=== PATIENT | male | born 1950 | race Hispanic/Latino ===

== ENCOUNTER 2016-02-12 14:02 | Inpatient (IN) | payer MEDICARE ==
[2016-02-12 15:53] LABS: Hemoglobin 10.4 gm/dl (11.8-15.2); Mean Corpuscular HGB Conc 31 % (32-34); Mean Corpuscular Hemoglobin 28 pg (28-32); Mean Corpuscular Volume 90 fl (84-94); Platelet Count 340 K/mm3 (140-440); Red Blood Count 3.65 M/mm3 (3.65-5.03)
[2016-02-12 16:00] LABS: White Blood Count 21.4 K/mm3 (4.5-11.0)
[2016-02-12] MEDS ORDERED: NACL 0.9% 1000 ML 1,000 ML ONE (16:13)
[2016-02-12 16:25] LABS: BUN/Creatinine Ratio 14.11; Calcium 8.5 mg/dL (8.4-10.2); Chloride 97.7 mmol/L (98-107); Potassium 4.4 mmol/L (3.6-5.0)
[2016-02-12] MEDS ORDERED: NACL 0.9% 1000 ML IV ONE (16:40)
[2016-02-12] MEDS ORDERED: ZOSYN/NS 4.5GM/100ML 100 ML IV ONE ×2 (16:45→20:03)
[2016-02-12] MEDS ORDERED: VANCOMYCIN/NS 1 GM/250 ML 250 ML IV ONE (16:45)
--- NOTE | 2016-02-12 16:54 | Emergency Department Report ---
HPI - General Chief Complaint: Dyspnea/Respdistress Time Seen by Provider: 02/12/16 15:12 - HPI HPI: Chief complaint: Shortness of breath HPI: Patient with a history of end-stage COPD, CHF states he's been having difficulty breathing for the last 2 weeks. Patient was admitted to [facility] was there for 4 days and was discharged 3 days ago. Patient states he's been getting worse ever since. Patient denies nausea, vomiting, diarrhea or fever. Patient has a dry cough. Patient states he was told he had heart failure on this last admission but never saw a masonry instructor and states it is a right heart problem. Patient has no pedal edema. Patient is on 3-1/2 L of O2 via nasal cannula at home. Patient states he is taking prednisone since his discharge from the hospital but no antibiotics. Mode of arrival: [EMS] Source: [Patient] Began: Several weeks Duration: Continuous Context: Patient quit smoking 9 years ago. Patient states that he never got better in the hospital after admission here request that he go to LTAC. Quality: Generalized body aches Severity: 6 out of 10 Improved with: Nothing Worsened with: Exertion increases his shortness of breath Associated signs and symptoms: Patient states he's had decreased appetite ED Past Medical Hx - Past Medical History Hx Hypertension: Yes Hx Congestive Heart Failure: Yes Hx Diabetes: Yes Hx COPD: Yes - Surgical History Hx Cholecystectomy: Yes Additional Surgical History: tonsillectomy - Social History Smoking Status: Former Smoker Substance Use Type: None - Medications Home Medications: Home Medications Medication Instructions Recorded Confirmed Last Taken Type ALBUTEROL Inhaler [Proair] 2 puff IH QID PRN 02/12/16 02/12/16 Unknown History ALPRAZolam [Xanax TAB] 0.5 mg PO BID PRN 02/12/16 02/12/16 Unknown History Clopidogrel Bisulfate [Plavix] 75 mg PO DAILY 02/12/16 02/12/16 Unknown History Finasteride [Proscar] 5 mg PO QDAY 02/12/16 02/12/16 Unknown History Insulin Aspart [NovoLOG Flexpen] 0 units SQ AC 02/12/16 02/12/16 Unknown History Insulin Detemir [Levemir Flextouch] 20 unit SQ QHS 02/12/16 02/12/16 Unknown History Ipratropium [Atrovent] 0.5 mg IH Q8HRT 02/12/16 02/12/16 Unknown History Lisinopril [Zestril] 5 mg PO QDAY 02/12/16 02/12/16 Unknown History Tamsulosin [Flomax] 0.4 mg PO QDAY 02/12/16 02/12/16 Unknown History Tiotropium [Spiriva] 18 mcg IH QDAY 02/12/16 02/12/16 Unknown History amLODIPine [Norvasc] 10 mg PO DAILY 02/12/16 02/12/16 Unknown History predniSONE [Deltasone] 40 mg PO QDAY 02/12/16 02/12/16 Unknown History ED Review of Systems ROS: Stated complaint: MILAGRO Other details as noted in HPI ROS Constitutional: No fever, some lightheadedness. ENT: No uri symptoms Cardiovascular: No chest pain Respiratory: See HPI GI: No nausea vomiting or diarrhea : No dysuria frequency or urgency, Skin: No rash Neuro: No focal weakness or numbness Psych: No depression Travis/lymph: No edema Physical Exam - Physical Exam Vital Signs: Vital Signs 02/12/16 14:55 Temperature 97.9 F Pulse Rate 114 H Respiratory 24 Rate Blood Pressure 82/44 O2 Sat by Pulse 4 L Oximetry Physical Exam: GENERAL: The patient is well-developed well-nourished . Vital signs noted. HEENT: Normocephalic. Atraumatic. Extraocular motions are intact. Patient has moist mucous membranes. NECK: Supple. No meningitic signs are noted. There is no adenopathy noted. CHEST/LUNGS: Diminished with expiratory wheezes. There is no respiratory distress noted. HEART/CARDIOVASCULAR: Regular. There is no tachycardia. There is no gallop rub or murmur. ABDOMEN: Abdomen is soft, nontender. Patient has normal bowel sounds. There is no abdominal distention. SKIN: There is no rash. There is no edema. There is no diaphoresis. NEURO: The patient is awake, alert, and oriented. The patient is cooperative. The patient has no focal neurologic deficits. The patient has normal speech. MUSCULOSKELETAL: There is no tenderness or deformity. There is no limitation range of motion. There is no evidence of acute injury. ED Course Vital Signs 02/12/16 14:55 Temperature 97.9 F Pulse Rate 114 H Respiratory 24 Rate Blood Pressure 82/44 O2 Sat by Pulse 4 L Oximetry - Reevaluation(s) Reevaluation #1: 02/12/16 17:02 Patient was cultured and given IV antibiotics and IV fluids. Patient will be admitted to the hospitalist. Reevaluation #3: 02/12/16 Patient stopped taking his breathing treatment because it made him anxious. Patient states he would not consider BiPAP or intubation or central line. ED Medical Decision Making - Lab Data Result diagrams: 02/12/16 15:33 02/12/16 15:32 Laboratory Tests 02/12/16 15:32 Troponin T 0.014 - EKG Data -: EKG Interpreted by Me EKG shows normal: sinus rhythm Rate: tachycardia (102) - EKG Data When compared to previous EKG there are: previous EKG unavailable Interpretation: normal EKG (except for tachycardia) Critical care attestation.: If time is entered above; I have spent that time in minutes in the direct care of this critically ill patient, excluding procedure time. ED Disposition Clinical Impression: COPD exacerbation, Dehydration, Renal insufficiency Leukocytosis Qualifiers: Leukocytosis type: unspecified Qualified Code(s): D72.829 - Elevated white blood cell count, unspecified Disposition: OP ADMITTED IP TO THIS HOSP Is pt being admited?: Yes Does the pt Need Aspirin: Yes Condition: Stable Instructions: Chronic Obstructive Pulmonary Disease (ED)
[2016-02-12] MEDS ORDERED: PROVENTIL IH ONE (16:57)
[2016-02-12] MEDS ORDERED: ATROVENT IH ONE (16:57)
[2016-02-12 19:41] LABS: Basophils % (Manual) 0 % (0.0-1.8); Blastocytes % (Manual) 0 %; Eosinophils % (Manual) 0 % (0.0-4.3)
[2016-02-12 19:42] LABS: Anisocytosis 1+; Elliptocytes Few; Ovalocytes 1+
[2016-02-12 19:43] LABS: Diff Status Complete; Platelet Estimate Consistent w Auto
[2016-02-12] MEDS ORDERED: ASPIRIN PO ONE (19:50)
[2016-02-12] MEDS ORDERED: PROAIR IH PRN (21:09)
--- NOTE | 2016-02-12 21:09 | Event Note ---
Date: 02/12/16 Ac resp failure Copd exacerbation ESLD Patient doesn't want Intubation or Bipap--signed DNI/ No BIPAP
[2016-02-12] MEDS ORDERED: MILK OF MAGNESIA PO PRN (21:14)
[2016-02-12] MEDS ORDERED: DULCOLAX PR PRN (21:14)
[2016-02-12] MEDS ORDERED: ZOFRAN IV PRN (21:14)
[2016-02-12] MEDS ORDERED: TYLENOL PO PRN (21:14)
[2016-02-12] MEDS ORDERED: DILAUDID IV PRN (21:14)
[2016-02-12] MEDS ORDERED: NOVOLOG SUB-Q ONE ×2 (21:29→22:08)
[2016-02-12] MEDS ORDERED: PROVENTIL IH PRN ×2 (21:35→21:59)
[2016-02-12] MEDS ORDERED: DUONEB 0.5 MG-3 MG/3 ML SOLN IH PRN (21:51)
[2016-02-12] MEDS ORDERED: INSULIN DETEMIR 20 UNIT SQ SCH (22:00)
[2016-02-12] MEDS ORDERED: D5NS 1,000 ML IV SCH (22:00)
[2016-02-12] MEDS ORDERED: LEVAQUIN 750MG/150ML 150 ML IV SCH ×2 (22:00)
[2016-02-12 22:06] LABS: ISTAT Base Excess 7; ISTAT HCO3 31.1; ISTAT PH 7.457 (7.35-7.45); ISTAT PO2 104 (80-105); ISTAT SO2 98; ISTAT TCO2 32
--- NOTE | 2016-02-12 22:47 | History and Physical Report ---
CHIEF COMPLAINT: Severe shortness of breath. HISTORY OF PRESENT ILLNESS: A 66-year-old male with end-stage COPD and CHF who comes in for severe difficulty breathing for the last 2 weeks. The patient was admitted to [facility] recently for 4 days and was discharged 3 days ago. The patient has been getting worse since then. Denies nausea or vomiting. The patient does not want intubation. Does not want BiPAP. No fever, no chills. The patient has right heart ventricular failure. The patient is on 3.5 liters oxygen at home. Also, is taking 40 mg of prednisone. Worsening shortness of breath. Quit smoking 9 years ago. He does not want intubation, does not want BiPAP, but he wants to be stabilized and then sent to LT for rehab. PAST MEDICAL HISTORY: End-stage lung disease, severe COPD, congestive heart failure, hypertension, BPH, and insulin-dependent diabetes. PAST SURGICAL HISTORY: Tonsillectomy. SOCIAL HISTORY: Smoker till 9 years ago. CURRENT MEDICATIONS: ProAir 2 puffs q.i.d., Xanax 0.5 mg b.i.d., Plavix 75 mg p.o. daily, Proscar 5 mg p.o. daily, NovoLog 10 units a.c. and Levemir 20 units subcutaneous at bedtime, Atrovent 2 puffs t.i.d., Zestril 5 mg p.o. daily, Flomax 0.4 mg p.o. daily, Spiriva 18 mcg p.o. daily, amlodipine 10 mg p.o. daily, and prednisone 40 mg p.o. daily. REVIEW OF SYSTEMS: Significant for increasing shortness of breath and worsening shortness of breath. Cough productive of mucoid sputum and shortness of breath on very minimal exertion and at rest. No fever. No chills. A 14-point review of systems otherwise negative. No chest pain. No palpitations. PHYSICAL EXAMINATION: GENERAL: Elderly male in [id number] respiratory distress. VITAL SIGNS: Temperature 97.9, pulse is 114, respiratory rate is 24, blood pressure 82/44, sats are 90%. HEENT: Unremarkable. Pupils equal and reactive. NECK: Supple, no lymphadenopathy, no thyromegaly. LUNGS: Decreased air entry and bilateral rhonchi present. Both expiratory and inspiratory rhonchi present. CARDIOVASCULAR: S1, S2 heard. No gallop, no murmur, no rub. Apical impulse in left fifth intercostal space and midclavicular line. ABDOMEN: Soft and benign. No hepatosplenomegaly. No guarding, no rigidity. Hernial orifices are normal. EXTREMITIES: Slight pedal edema present. LABORATORY DATA: White count is 21,000, H and H is 10.4 and 33.0, platelet count is 340,000. Sodium is 143, potassium is 4.4, chloride is 97.7, BUN and creatinine is 24 and 1.7, glucose is 181. EKG shows sinus tachycardia, heart rate of [address]-T wave changes. Chest x-ray shows severe COPD. No infiltrates. Blood gas was done, but was pending. ASSESSMENT AND PLAN: 1. Acute respiratory failure secondary to chronic obstructive pulmonary disease. The patient does not want intubation, does not BiPAP. We will optimize this treatment with DuoNeb q. 6 hours round the clock ____ and also Pulmicort and IV Solu-Medrol 125 q. 8 hours and IV Levaquin 750 mg q. 24 hours. 2. Insulin-dependent diabetes. Continue long-acting insulin 20 units of Levemir at night time and also ____ a.c. and h.s. 3. Benign prostatic hypertrophy. Continue finasteride 5 mg p.o. daily. 4. Hypertension. Continue lisinopril 5 mg daily. 5. Steroid-dependent chronic obstructive pulmonary disease. We will hold the prednisone 40 mg for the time being and put him on Solu-Medrol 125 q. 8 hours and resume at the time of discharge to LTAC. 6. Anxiety disorder. Continue alprazolam. 7. Coronary artery disease. Continue Plavix. 8. Deep venous thrombosis prophylaxis, Lovenox 40 mg subcutaneous daily. CRITICAL CARE STATEMENT: High probability of a clinically significant sudden or life-threatening deterioration of the hematologic and cardiorespiratory system required my full and direct attention, intervention and personal management. The aggregate critical care time was 37 minutes. The time in addition to time spent performing reported procedures, but includes the followin. Data review and interpretation. 2. The patient's assessment and monitoring of vital signs. 3. Documentation 4. Medication orders and management. JOB# [id number] MERI/WALI
[2016-02-12] MEDS: NACL 0.9% 1000 ML 1,000 ML IV SCH (23:23)
[2016-02-12] MEDS: PEPCID IV SCH (23:24)
[2016-02-12] MEDS: ZESTRIL PO SCH (23:24)
[2016-02-12] MEDS: NORVASC PO SCH (23:25)
[2016-02-12] MEDS: LEVEMIR SUB-Q SCH (23:42)
[2016-02-12] MEDS: PLAVIX PO SCH (23:47)
[2016-02-13] MEDS ORDERED: ATROVENT IH SCH
[2016-02-13 04:45] LABS: Hematocrit 31.5 % (35.5-45.6); Hemoglobin 9.7 gm/dl (11.8-15.2); Mean Corpuscular HGB Conc 31 % (32-34); Mean Corpuscular Hemoglobin 28 pg (28-32); Mean Corpuscular Volume 91 fl (84-94); Platelet Count 312 K/mm3 (140-440); Red Blood Count 3.46 M/mm3 (3.65-5.03); Red Cell Distribution Width 16.6 % (13.2-15.2); White Blood Count 14.8 K/mm3 (4.5-11.0)
[2016-02-13 05:02] LABS: Alanine Aminotransferase 10 units/L (7-56); Albumin 2.9 g/dL (3.9-5); Albumin/Globulin Ratio 1.2 %; Alkaline Phosphatase 50 units/L (35-129); Bilirubin,Total 0.5 mg/dL (0.1-1.2); Blood Urea Nitrogen 23 mg/dL (9-20); Calcium 8.1 mg/dL (8.4-10.2); Carbon Dioxide 32 mmol/L (22-30); Chloride 98.6 mmol/L (98-107); Glucose 160 mg/dL (75-100); Potassium 4.4 mmol/L (3.6-5.0); Sodium 138 mmol/L (137-145); Total Protein 5.3 g/dL (6.3-8.2)
[2016-02-13 05:19] LABS: Anion Gap 12 mmol/L
[2016-02-13 05:36] LABS: Anisocytosis 1+; Basophils % (Manual) 0 % (0.0-1.8); Blastocytes % (Manual) 0 %; Eosinophils % (Manual) 0 % (0.0-4.3); Platelet Estimate Consistent w Auto
[2016-02-13 05:37] LABS: Diff Status Complete
[2016-02-13] MEDS ORDERED: SPIRIVA IH SCH (10:00)
--- NOTE | 2016-02-13 10:06 | Consultation ---
History of Present Illness Consult date: 02/13/16 Requesting physician: PEARL BALDWIN Reason for consult: COPD History of present illness: 66 y/o male with known COPD and known chronic respiratory failure admitted with overall malaise and requesting admission to LTACH. Per patient he was released from [facility] to [facility] and feels that he needs rehab either here on the 3rd floor or 6th floor. He states that he is on 3.5 liters NC at home but here he is on 2.5 with a sat of 98%. ABG was stable. Had some mild renal insuff on yesterday but this has resolved. Patient would now like breathing treatments as per documentation he refused last night. Remainder is negative. Past History Past Medical History: COPD, diabetes, hypertension, other (chronic respiratory failure, BPH,) Social history: Medications and Allergies Allergies Allergy/AdvReac Type Severity Reaction Status Date / Time No Known Allergies Allergy Unverified 02/12/16 14:59 Home Medications Medication Instructions Recorded Confirmed Last Taken Type ALBUTEROL Inhaler [Proair] 2 puff IH QID PRN 02/12/16 02/12/16 Unknown History ALPRAZolam [Xanax TAB] 0.5 mg PO BID PRN 02/12/16 02/12/16 Unknown History Clopidogrel Bisulfate [Plavix] 75 mg PO DAILY 02/12/16 02/12/16 Unknown History Finasteride [Proscar] 5 mg PO QDAY 02/12/16 02/12/16 Unknown History Insulin Aspart [NovoLOG Flexpen] 0 units SQ AC 02/12/16 02/12/16 Unknown History Insulin Detemir [Levemir Flextouch] 20 unit SQ QHS 02/12/16 02/12/16 Unknown History Ipratropium [Atrovent] 0.5 mg IH Q8HRT 02/12/16 02/12/16 Unknown History Lisinopril [Zestril] 5 mg PO QDAY 02/12/16 02/12/16 Unknown History Tamsulosin [Flomax] 0.4 mg PO QDAY 02/12/16 02/12/16 Unknown History Tiotropium [Spiriva] 18 mcg IH QDAY 02/12/16 02/12/16 Unknown History amLODIPine [Norvasc] 10 mg PO DAILY 02/12/16 02/12/16 Unknown History predniSONE [Deltasone] 40 mg PO QDAY 02/12/16 02/12/16 Unknown History Active Meds: Active Medications Acetaminophen (Tylenol) 650 mg PO Q4H PRN PRN Reason: Pain MILD(1-3)/Fever >100.5/RAMOS Albuterol (Proventil) 2.5 mg IH Q3HRT PRN PRN Reason: Wheezing/ SOB Albuterol/Ipratropium (Duoneb 0.5 Mg-3 Mg/3 Ml Soln) 1 ampul IH Q6HRT [facility] Alprazolam (Xanax) 0.5 mg PO BID PRN PRN Reason: Anxiety Amlodipine Besylate (Norvasc) 10 mg PO DAILY [facility] Last Admin: 02/12/16 23:25 Dose: Not Given Bisacodyl (Dulcolax) 10 mg FL QDAY PRN PRN Reason: Constipation unrelieved by MOM Clopidogrel Bisulfate (Plavix) 75 mg PO DAILY [facility] Last Admin: 02/12/16 23:47 Dose: 75 mg Enoxaparin Sodium (Lovenox) 40 mg SUB-Q QDAY [facility] Famotidine (Pepcid) 20 mg IV BID [facility] Last Admin: 02/12/16 23:24 Dose: 20 mg Finasteride (Proscar) 5 mg PO QDAY [facility] Hydromorphone HCl (Dilaudid) 0.5 mg IV Q3H PRN PRN Reason: Pain , Severe (7-10) Levofloxacin/Dextrose (Levaquin 750mg/150ml) 150 mls @ 100 mls/hr IV Q48H [facility] PRN Reason: Protocol Last Admin: 02/12/16 23:22 Dose: 100 mls/hr Sodium Chloride (Nacl 0.9% 1000 Ml) 1,000 mls @ 100 mls/hr IV DIRECT [facility] Last Admin: 02/12/16 23:23 Dose: 100 mls/hr Insulin Detemir (Levemir) 20 units SUB-Q QHS [facility] Last Admin: 02/12/16 23:42 Dose: 20 units Insulin Human Regular (Novolin R) 0 units SUB-Q ACHS [facility] PRN Reason: Protocol Lisinopril (Zestril) 5 mg PO QDAY [facility] Last Admin: 02/12/16 23:24 Dose: Not Given Magnesium Hydroxide (Milk Of Magnesia) 30 ml PO Q4H PRN PRN Reason: Constipation Methylprednisolone Sodium Succinate (Solu-Medrol) 125 mg IV Q8HR [facility] Last Admin: 02/13/16 06:58 Dose: 125 mg Ondansetron HCl (Zofran) 4 mg IV Q8H PRN PRN Reason: N/V unrelieved by Reglan Oxycodone/Acetaminophen (Percocet 5/325) 1 tab PO Q6H PRN PRN Reason: Pain, Moderate (4-6) Tamsulosin HCl (Flomax) 0.4 mg PO QDAY [facility] Review of Systems All systems: negative Physical Examination Vital signs: Vital Signs Pulse Ox 97 02/12/16 12:54 General appearance: no acute distress, alert Eyes: non-icteric ENT: oropharynx moist, other (poor dentition) Ascultation: Bilateral: diminished breath sounds (but clear) Percussion: Bilateral: not dull Tactile fremitus: Bilateral: normal Cardiovascular: regular rate and rhythm Gastrointestinal: normoactive bowel sounds, soft, non-tender Extremities: no cyanosis, no edema Musculoskeletal: no deformities normal mental status, non-focal exam other (angry) Results - Laboratory Findings CBC and BMP: 02/13/16 04:15 02/13/16 04:15 ABG POC ABG pH 7.457 (7.35-7.45) H 02/12/16 22:01 POC ABG pCO2 44.0 (35-45) 02/12/16 22:01 POC ABG pO2 104 (80-105) 02/12/16 22:01 POC ABG HCO3 31.1 02/12/16 22:01 POC ABG Total CO2 32 02/12/16 22:01 POC ABG O2 Sat 98 02/12/16 22:01 Abnormal lab findings: Abnormal Labs 02/12/16 02/12/16 02/12/16 22:01 22:04 23:39 WBC RBC Hgb Hct MCHC RDW Seg Neuts % (Manual) Lymphocytes % (Manual) Seg Neutrophils # Man Lymphocytes # (Manual) POC ABG pH 7.457 H Carbon Dioxide BUN Glucose POC Glucose 313 H 296 H Calcium Total Protein Albumin 02/13/16 02/13/16 02/13/16 04:15 04:15 08:05 WBC 14.8 H RBC 3.46 L Hgb 9.7 L Hct 31.5 L MCHC 31 L RDW 16.6 H Seg Neuts % (Manual) 91.0 H Lymphocytes % (Manual) 2.0 L Seg Neutrophils # Man 13.5 H Lymphocytes # (Manual) 0.3 L POC ABG pH Carbon Dioxide 32 H BUN 23 H Glucose 160 H POC Glucose 154 H Calcium 8.1 L Total Protein 5.3 L Albumin 2.9 L - Diagnostic Findings Chest x-ray: image reviewed (chronic bibasilar changes, vs pulmonary edema) Assessment and Plan 66 y/o male with chronic respiratory failure, COPD, hypertension and anxiety, admitted with failure to thrive, requesting placement. 1. Will change steroids to 40mg IV daily 2. Would stop abx therapy 3. Agree with PT/OT evaluation 4. BP control 5. Unsure exactly why patient was admitted to the ICU, will transfer out to floor 6. Case management consult for placement at request of patient. Explained to him that he would need to qualify for certain placement areas. He voiced understanding.
--- NOTE | 2016-02-13 10:06 | XRay Report ---
AP CHEST: HISTORY: Shortness of breath Advanced emphysematous changes. No consolidation, pleural effusion or pneumothorax. Normal heart size and pulmonary vascularity. IMPRESSION: COPD.
[2016-02-13] MEDS: LOVENOX SUB-Q SCH (10:37)
[2016-02-13] MEDS: PEPCID IV SCH (10:37)
[2016-02-13] MEDS: FLOMAX PO SCH (10:37)
[2016-02-13] MEDS: NORVASC PO SCH (10:37)
[2016-02-13] MEDS: NACL 0.9% 1000 ML 1,000 ML IV SCH ×2 (10:39→18:45)
[2016-02-13] MEDS: PLAVIX PO SCH (10:44)
[2016-02-13] MEDS: PROSCAR PO SCH (10:44)
[2016-02-13] MEDS: ZESTRIL PO SCH (10:49)
--- NOTE | 2016-02-13 12:36 | Progress Note ---
Assessment and Plan Assessment and plan: 1. COPd exacerbation with chronic respiratory failure- will cont nebulization treatments; transfer to medical floor; cont steroid; change levaquin to 500mg daily; add brovana and pulmicort; 2. CHF - appears compensated; EF unknown; cont current meds; eCHO to eval EF 3. 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 Benign HTN- uncontrolled; cont current meds and adjust as needed 5. BPH- cont meds 6. Debility- PT eval 7. DVT prophylaxis- lovenox Transfer to medical floor History Interval history: F/u copd exacerbation; debility; chf patient seen at the bedside; reports no change in his SOB but is laying comfortable in bed on NC oxygen; DNI but wants cardiac compressions Hospitalist Physical - Constitutional Vitals: Temp Pulse Resp BP Pulse Ox 97.7 F 86 15 155/82 98 02/13/16 08:00 02/13/16 10:49 02/13/16 09:00 02/13/16 10:49 02/13/16 10:00 General appearance: Present: no acute distress (on NC oxygen), well-nourished - EENT Eyes: Present: PERRL, EOM intact. Absent: scleral icterus, conjunctival injection ENT: hearing intact, clear oral mucosa, no oropharyngeal erythema, no poor dentition - Neck Neck: Present: supple, normal ROM. Absent: enlarged thyroid, masses or JVD - Respiratory Respiratory effort: normal (on NC oxygen) Respiratory: bilateral: diminished, negative: rales, rhonchi, wheezing - Cardiovascular Rhythm: regular Heart Sounds: Present: S1 & S2. Absent: gallop - Extremities Extremities: no ischemia, pulses intact, pulses symmetrical, No edema Peripheral Pulses: within normal limits - Abdominal General gastrointestinal: soft, non-tender, non-distended - Integumentary Integumentary: Present: clear - Psychiatric Psychiatric: intact judgment & insight, agitated - Neurologic Neurologic: CNII-XII intact, moves all extremities Results - Labs CBC & Chem 7: 02/13/16 04:15 02/13/16 04:15 Labs: Laboratory Last Values WBC 14.8 K/mm3 (4.5-11.0) H 02/13/16 04:15 RBC 3.46 M/mm3 (3.65-5.03) L 02/13/16 04:15 Hgb 9.7 gm/dl (11.8-15.2) L 02/13/16 04:15 Hct 31.5 % (35.5-45.6) L 02/13/16 04:15 MCV 91 fl (84-94) 02/13/16 04:15 MCH 28 pg (28-32) 02/13/16 04:15 MCHC 31 % (32-34) L 02/13/16 04:15 RDW 16.6 % (13.2-15.2) H 02/13/16 04:15 Plt Count 312 K/mm3 (140-440) 02/13/16 04:15 Add Manual Diff Complete 02/13/16 04:15 Total Counted 100 02/13/16 04:15 Seg Neutrophils % Key Holder 02/13/16 04:15 Seg Neuts % (Manual) 91.0 % (40.0-70.0) H 02/13/16 04:15 Band Neutrophils % 6.0 % 02/13/16 04:15 Lymphocytes % (Manual) 2.0 % (13.4-35.0) L 02/13/16 04:15 Reactive Lymphs % (Man) 0 % 02/13/16 04:15 Monocytes % (Manual) 1.0 % (0.0-7.3) 02/13/16 04:15 Eosinophils % (Manual) 0 % (0.0-4.3) 02/13/16 04:15 Basophils % (Manual) 0 % (0.0-1.8) 02/13/16 04:15 Metamyelocytes % 0 % 02/13/16 04:15 Myelocytes % 0 % 02/13/16 04:15 Promyelocytes % 0 % 02/13/16 04:15 Blast Cells % 0 % 02/13/16 04:15 Nucleated RBC % Not Reportable 02/13/16 04:15 Seg Neutrophils # Man 13.5 K/mm3 (1.8-7.7) H 02/13/16 04:15 Band Neutrophils # 0.9 K/mm3 02/13/16 04:15 Lymphocytes # (Manual) 0.3 K/mm3 (1.2-5.4) L 02/13/16 04:15 Abs React Lymphs (Man) 0.0 K/mm3 02/13/16 04:15 Monocytes # (Manual) 0.1 K/mm3 (0.0-0.8) 02/13/16 04:15 Eosinophils # (Manual) 0.0 K/mm3 (0.0-0.4) 02/13/16 04:15 Basophils # (Manual) 0.0 K/mm3 (0.0-0.1) 02/13/16 04:15 Metamyelocytes # 0.0 K/mm3 02/13/16 04:15 Myelocytes # 0.0 K/mm3 02/13/16 04:15 Promyelocytes # 0.0 K/mm3 02/13/16 04:15 Blast Cells # 0.0 K/mm3 02/13/16 04:15 WBC Morphology Not Reportable 02/13/16 04:15 Hypersegmented Neuts Not Reportable 02/13/16 04:15 Hyposegmented Neuts Not Reportable 02/13/16 04:15 Hypogranular Neuts Not Reportable 02/13/16 04:15 Smudge Cells Not Reportable 02/13/16 04:15 Toxic Granulation Not Reportable 02/13/16 04:15 Toxic Vacuolation Not Reportable 02/13/16 04:15 Dohle Bodies Not Reportable 02/13/16 04:15 Pelger-Huet Anomaly Not Reportable 02/13/16 04:15 Louise Rods Not Reportable 02/13/16 04:15 Platelet Estimate Consistent w auto 02/13/16 04:15 Clumped Platelets Not Reportable 02/13/16 04:15 Plt Clumps, EDTA Not Reportable 02/13/16 04:15 Large Platelets Not Reportable 02/13/16 04:15 Giant Platelets Not Reportable 02/13/16 04:15 Platelet Satelliting Not Reportable 02/13/16 04:15 Plt Morphology Comment Not Reportable 02/13/16 04:15 RBC Morphology Not Reportable 02/13/16 04:15 Dimorphic RBCs Not Reportable 02/13/16 04:15 Polychromasia Not Reportable 02/13/16 04:15 Hypochromasia Not Reportable 02/13/16 04:15 Poikilocytosis Not Reportable 02/13/16 04:15 Anisocytosis 1+ 02/13/16 04:15 Microcytosis Not Reportable 02/13/16 04:15 Macrocytosis Not Reportable 02/13/16 04:15 Spherocytes Not Reportable 02/13/16 04:15 Pappenheimer Bodies Not Reportable 02/13/16 04:15 Sickle Cells Not Reportable 02/13/16 04:15 Target Cells Not Reportable 02/13/16 04:15 Tear Drop Cells Not Reportable 02/13/16 04:15 Ovalocytes Not Reportable 02/13/16 04:15 Helmet Cells Not Reportable 02/13/16 04:15 Gonzalez-Zeigler Bodies Not Reportable 02/13/16 04:15 [place] Rings Not Reportable 02/13/16 04:15 Rell Cells Not Reportable 02/13/16 04:15 Bite Cells Not Reportable 02/13/16 04:15 Crenated Cell Not Reportable 02/13/16 04:15 Elliptocytes Not Reportable 02/13/16 04:15 Acanthocytes (Spur) Not Reportable 02/13/16 04:15 Rouleaux Not Reportable 02/13/16 04:15 Hemoglobin C Crystals Not Reportable 02/13/16 04:15 Schistocytes Not Reportable 02/13/16 04:15 Malaria parasites Not Reportable 02/13/16 04:15 Jayesh Bodies Not Reportable 02/13/16 04:15 Hem Pathologist Commnt No 02/13/16 04:15 POC ABG pH 7.457 (7.35-7.45) H 02/12/16 22:01 POC ABG pCO2 44.0 (35-45) 02/12/16 22:01 POC ABG pO2 104 (80-105) 02/12/16 22:01 POC ABG HCO3 31.1 02/12/16 22:01 POC ABG Total CO2 32 02/12/16 22:01 POC ABG O2 Sat 98 02/12/16 22:01 POC ABG Base Excess 7 02/12/16 22:01 FiO2 4 % 02/12/16 22:01 Sodium 138 mmol/L (137-145) 02/13/16 04:15 Potassium 4.4 mmol/L (3.6-5.0) 02/13/16 04:15 Chloride 98.6 mmol/L (98-107) 02/13/16 04:15 Carbon Dioxide 32 mmol/L (22-30) H 02/13/16 04:15 Anion Gap 12 mmol/L 02/13/16 04:15 BUN 23 mg/dL (9-20) H 02/13/16 04:15 Creatinine 1.0 mg/dL (0.8-1.5) 02/13/16 04:15 Estimated GFR > 60 ml/min 02/13/16 04:15 BUN/Creatinine Ratio 23.00 % 02/13/16 04:15 Glucose 160 mg/dL (75-100) H 02/13/16 04:15 POC Glucose 167 (70-105) H 02/13/16 11:59 Hemoglobin A1c 6.9 % (4-6) H 02/12/16 15:33 Calcium 8.1 mg/dL (8.4-10.2) L 02/13/16 04:15 Total Bilirubin 0.5 mg/dL (0.1-1.2) 02/13/16 04:15 AST 8 units/L (5-40) 02/13/16 04:15 ALT 10 units/L (7-56) 02/13/16 04:15 Alkaline Phosphatase 50 units/L (35-129) 02/13/16 04:15 Troponin T 0.014 ng/mL (0.00-0.029) 02/12/16 15:32 Total Protein 5.3 g/dL (6.3-8.2) L 02/13/16 04:15 Albumin 2.9 g/dL (3.9-5) L 02/13/16 04:15 Albumin/Globulin Ratio 1.2 % 02/13/16 04:15 - Imaging and Cardiology Chest x-ray: report reviewed (copd)
[2016-02-13] MEDS: DUONEB 0.5 MG-3 MG/3 ML SOLN IH SCH ×2 (14:10→20:02)
[2016-02-14] MEDS: LEVEMIR SUB-Q SCH (00:16)
[2016-02-14] MEDS: PEPCID IV SCH ×2 (00:18→09:47)
[2016-02-14] MEDS: XANAX PO PRN (00:18)
[2016-02-14 05:05] LABS: Hematocrit 29.7 % (35.5-45.6); Hemoglobin 9.3 gm/dl (11.8-15.2); Mean Corpuscular HGB Conc 31 % (32-34); Mean Corpuscular Hemoglobin 28 pg (28-32); Mean Corpuscular Volume 91 fl (84-94); Platelet Count 317 K/mm3 (140-440); Red Blood Count 3.27 M/mm3 (3.65-5.03); Red Cell Distribution Width 16.6 % (13.2-15.2); White Blood Count 16.6 K/mm3 (4.5-11.0)
[2016-02-14 05:29] LABS: Anion Gap 13 mmol/L; BUN/Creatinine Ratio 22.85; Blood Urea Nitrogen 16 mg/dL (9-20); Calcium 8.1 mg/dL (8.4-10.2); Carbon Dioxide 30 mmol/L (22-30); Chloride 105.2 mmol/L (98-107); Glucose 103 mg/dL (75-100); Potassium 4.5 mmol/L (3.6-5.0); Sodium 144 mmol/L (137-145)
[2016-02-14 06:12] LABS: Anisocytosis 1+; Basophils % (Manual) 0 % (0.0-1.8); Blastocytes % (Manual) 0 %; Diff Status Complete; Eosinophils % (Manual) 0 % (0.0-4.3); Platelet Estimate Consistent w Auto
[2016-02-14] MEDS: DUONEB 0.5 MG-3 MG/3 ML SOLN IH SCH ×4 (07:25→22:11)
[2016-02-14] MEDS: PLAVIX PO SCH (09:47)
[2016-02-14] MEDS: ZESTRIL PO SCH (09:47)
[2016-02-14] MEDS: FLOMAX PO SCH (09:48)
[2016-02-14] MEDS: PROSCAR PO SCH (09:48)
[2016-02-14] MEDS: LOVENOX SUB-Q SCH (09:49)
[2016-02-14] MEDS: NORVASC PO SCH (09:50)
--- NOTE | 2016-02-14 11:36 | Progress Note ---
Assessment and Plan Imp: 1. Centrilobular emphysema, end-stage 2. COPD exac. 3. A/C respiratory failure, hypoxia Rec: 1. Solumedrol 2. Pulmicort/Brovana 3. Duonebs 4. Add low-dose Theophylline 5. Ambulation/placement 6. Await transfer out of ICU Plan of care reviewed w/ patient, he understands/agrees Subjective Date of service: 02/14/16 Principal diagnosis: COPD Interval history: No events. On home O2 dose. SOB better. + Wheezing. + Cough. Active Medications Acetaminophen (Tylenol) 650 mg PO Q4H PRN PRN Reason: Pain MILD(1-3)/Fever >100.5/RAMOS Albuterol (Proventil) 2.5 mg IH Q3HRT PRN PRN Reason: Wheezing/ SOB Albuterol/Ipratropium (Duoneb 0.5 Mg-3 Mg/3 Ml Soln) 1 ampul IH Q6HRT [facility] Last Admin: 02/14/16 19:36 Dose: 1 ampul Alprazolam (Xanax) 0.5 mg PO BID PRN PRN Reason: Anxiety Last Admin: 02/14/16 00:18 Dose: 0.5 mg Amlodipine Besylate (Norvasc) 10 mg PO DAILY [facility] Last Admin: 02/14/16 09:50 Dose: 10 mg Arformoterol Tartrate (Brovana Nebu) 15 mcg IH Q12HRT [facility] Bisacodyl (Dulcolax) 10 mg [place] QDAY PRN PRN Reason: Constipation unrelieved by MOM Budesonide (Pulmicort) 0.5 mg IH Q12HRT [facility] Clopidogrel Bisulfate (Plavix) 75 mg PO DAILY [facility] Last Admin: 02/14/16 09:47 Dose: 75 mg Enoxaparin Sodium (Lovenox) 40 mg SUB-Q QDAY [facility] Last Admin: 02/14/16 09:49 Dose: 40 mg Famotidine (Pepcid) 20 mg PO BID [facility] Finasteride (Proscar) 5 mg PO QDAY [facility] Last Admin: 02/14/16 09:48 Dose: 5 mg Hydromorphone HCl (Dilaudid) 0.5 mg IV Q3H PRN PRN Reason: Pain , Severe (7-10) Insulin Detemir (Levemir) 20 units SUB-Q QHS [facility] Last Admin: 02/14/16 00:16 Dose: 20 units Insulin Human Regular (Novolin R) 0 units SUB-Q ACHS [facility] PRN Reason: Protocol Last Admin: 02/14/16 17:30 Dose: Not Given Lisinopril (Zestril) 5 mg PO QDAY [facility] Last Admin: 02/14/16 09:47 Dose: 5 mg Magnesium Hydroxide (Milk Of Magnesia) 30 ml PO Q4H PRN PRN Reason: Constipation Methylprednisolone Sodium Succinate (Solu-Medrol) 40 mg IV Q24H [facility] Last Admin: 02/14/16 09:47 Dose: 40 mg Ondansetron HCl (Zofran) 4 mg IV Q8H PRN PRN Reason: N/V unrelieved by Reglan Oxycodone/Acetaminophen (Percocet 5/325) 1 tab PO Q6H PRN PRN Reason: Pain, Moderate (4-6) Last Admin: 02/14/16 20:34 Dose: 1 tab Tamsulosin HCl (Flomax) 0.4 mg PO QDAY [facility] Last Admin: 02/14/16 09:48 Dose: 0.4 mg Theophylline (Petros-24) 200 mg PO QDAY [facility] Objective Vital Signs - 12hr 02/14/16 02/14/16 02/14/16 00:00 01:00 02:00 Temperature Pulse Rate 81 75 76 Pulse Rate [ Anterior Bilateral Throughout] Respiratory 13 14 17 Rate Respiratory Rate [Anterior Bilateral Throughout] Blood Pressure 132/60 135/63 126/56 O2 Sat by Pulse 99 100 92 Oximetry 02/14/16 02/14/16 02/14/16 03:00 04:00 05:00 Temperature 98.7 F Pulse Rate 70 85 76 Pulse Rate [ Anterior Bilateral Throughout] Respiratory 15 15 15 Rate Respiratory Rate [Anterior Bilateral Throughout] Blood Pressure 111/54 136/61 128/66 O2 Sat by Pulse 99 93 100 Oximetry 02/14/16 02/14/16 02/14/16 06:00 07:00 07:16 Temperature Pulse Rate Pulse Rate [ Anterior Bilateral Throughout] Respiratory Rate Respiratory Rate [Anterior Bilateral Throughout] Blood Pressure 133/57 136/61 136/61 O2 Sat by Pulse 97 91 98 Oximetry 02/14/16 02/14/16 02/14/16 07:26 07:27 07:46 Temperature 98.2 F Pulse Rate Pulse Rate [ 78 Anterior Bilateral Throughout] Respiratory Rate Respiratory 20 Rate [Anterior Bilateral Throughout] Blood Pressure O2 Sat by Pulse 99 Oximetry 02/14/16 02/14/16 02/14/16 08:00 09:00 09:47 Temperature Pulse Rate 88 87 Pulse Rate [ Anterior Bilateral Throughout] Respiratory 14 Rate Respiratory Rate [Anterior Bilateral Throughout] Blood Pressure 142/64 132/60 132/60 O2 Sat by Pulse 99 97 Oximetry 02/14/16 02/14/16 02/14/16 09:50 10:00 11:00 Temperature Pulse Rate 87 87 85 Pulse Rate [ Anterior Bilateral Throughout] Respiratory 16 15 Rate Respiratory Rate [Anterior Bilateral Throughout] Blood Pressure 132/60 130/64 143/68 O2 Sat by Pulse 100 97 Oximetry Constitutional: no acute distress, alert Eyes: non-icteric ENT: oropharynx moist, other (poor dentition) Ascultation: Bilateral: diminished breath sounds (but clear) Cardiovascular: regular rate and rhythm (no mrg) Gastrointestinal: normoactive bowel sounds, soft, non-tender Integumentary: normal Extremities: no cyanosis, no edema Neurologic: normal mental status, non-focal exam Psychiatric: mood appropriate, affect normal CBC and BMP: 02/14/16 04:07 02/14/16 04:07 ABG, PT/INR, D-dimer: ABG POC ABG pH 7.457 (7.35-7.45) H 02/12/16 22:01 POC ABG pCO2 44.0 (35-45) 02/12/16 22:01 POC ABG pO2 104 (80-105) 02/12/16 22:01 POC ABG HCO3 31.1 02/12/16 22:01 POC ABG Total CO2 32 02/12/16 22:01 POC ABG O2 Sat 98 02/12/16 22:01 Abnormal lab findings: Abnormal Labs 02/12/16 02/12/16 02/12/16 22:01 22:04 23:39 WBC RBC Hgb Hct MCHC RDW Seg Neuts % (Manual) Lymphocytes % (Manual) Seg Neutrophils # Man Lymphocytes # (Manual) Monocytes # (Manual) POC ABG pH 7.457 H Carbon Dioxide BUN Creatinine Glucose POC Glucose 313 H 296 H Calcium Total Protein Albumin 02/13/16 02/13/1602/12/17 04:15 04:15 08:05 WBC 14.8 H RBC 3.46 L Hgb 9.7 L Hct 31.5 L MCHC 31 L RDW 16.6 H Seg Neuts % (Manual) 91.0 H Lymphocytes % (Manual) 2.0 L Seg Neutrophils # Man 13.5 H Lymphocytes # (Manual) 0.3 L Monocytes # (Manual) POC ABG pH Carbon Dioxide 32 H BUN 23 H Creatinine Glucose 160 H POC Glucose 154 H Calcium 8.1 L Total Protein 5.3 L Albumin 2.9 L 02/13/16 02/13/16 02/13/16 11:59 16:35 23:45 WBC RBC Hgb Hct MCHC RDW Seg Neuts % (Manual) Lymphocytes % (Manual) Seg Neutrophils # Man Lymphocytes # (Manual) Monocytes # (Manual) POC ABG pH Carbon Dioxide BUN Creatinine Glucose POC Glucose 167 H 181 H 115 H Calcium Total Protein Albumin 02/14/16 02/14/16 04:07 04:07 WBC 16.6 H RBC 3.27 L Hgb 9.3 L Hct 29.7 L MCHC 31 L RDW 16.6 H Seg Neuts % (Manual) 85.0 H Lymphocytes % (Manual) 5.0 L Seg Neutrophils # Man 14.1 H Lymphocytes # (Manual) 0.8 L Monocytes # (Manual) 1.0 H POC ABG pH Carbon Dioxide BUN Creatinine 0.7 L Glucose 103 H POC Glucose Calcium 8.1 L Total Protein Albumin Chest x-ray: report reviewed, image reviewed
--- NOTE | 2016-02-14 13:51 | Progress Note ---
Assessment and Plan Assessment and plan: 1. COPd exacerbation with chronic respiratory failure- improving and stable; will cont nebulization treatments; transfer to medical floor; cont steroid; levaquin to 500mg daily; cont brovana and pulmicort; 2. CHF - appears compensated; EF unknown; cont current meds; eCHO to eval EF 3. 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 Benign HTN- control; cont current meds and adjust as needed 5. BPH- cont meds 6. Debility- PT eval; await LTACH evaluation 7. DVT prophylaxis- lovenox awaiting bed on the floor and LTACH eval History Interval history: F/u copd exacerbation; debility; chf patient seen at the bedside; no complaints; sob better; wants rehab Hospitalist Physical - Constitutional Vitals: Temp Pulse Resp BP Pulse Ox 97.6 F 83 15 143/68 98 02/14/16 12:00 02/14/16 11:24 02/14/16 11:24 02/14/16 12:00 02/14/16 12:00 General appearance: Present: no acute distress (on [place] oxygen), well-nourished - EENT Eyes: Present: PERRL, EOM intact. Absent: scleral icterus, conjunctival injection ENT: hearing intact, clear oral mucosa, no oropharyngeal erythema, no poor dentition - Neck Neck: Present: supple - Respiratory Respiratory effort: normal Respiratory: negative: diminished, rales, rhonchi, wheezing - Cardiovascular Rhythm: regular Heart Sounds: Present: S1 & S2. Absent: gallop - Extremities Extremities: no ischemia, pulses intact, pulses symmetrical, No edema Peripheral Pulses: within normal limits - Abdominal General gastrointestinal: soft, non-tender, non-distended, normal bowel sounds - Integumentary Integumentary: Present: clear - Psychiatric Psychiatric: appropriate mood/affect, intact judgment & insight, cooperative - Neurologic Neurologic: CNII-XII intact, moves all extremities Results - Labs CBC & Chem 7: 02/14/16 04:07 02/14/16 04:07 Labs: Laboratory Last Values WBC 16.6 K/mm3 (4.5-11.0) H 02/14/16 04:07 RBC 3.27 M/mm3 (3.65-5.03) L 02/14/16 04:07 Hgb 9.3 gm/dl (11.8-15.2) L 02/14/16 04:07 Hct 29.7 % (35.5-45.6) L 02/14/16 04:07 MCV 91 fl (84-94) 02/14/16 04:07 MCH 28 pg (28-32) 02/14/16 04:07 MCHC 31 % (32-34) L 02/14/16 04:07 RDW 16.6 % (13.2-15.2) H 02/14/16 04:07 Plt Count 317 K/mm3 (140-440) 02/14/16 04:07 [place] % (Auto) Grain Packer 02/14/16 04:07 Add Manual Diff Complete 02/14/16 04:07 Total Counted 100 02/14/16 04:07 Seg Neutrophils % Grain Packer 02/13/16 04:15 Seg Neuts % (Manual) 85.0 % (40.0-70.0) H 02/14/16 04:07 Band Neutrophils % 4.0 % 02/14/16 04:07 Lymphocytes % (Manual) 5.0 % (13.4-35.0) L 02/14/16 04:07 Reactive Lymphs % (Man) 0 % 02/14/16 04:07 Monocytes % (Manual) 6.0 % (0.0-7.3) 02/14/16 04:07 Eosinophils % (Manual) 0 % (0.0-4.3) 02/14/16 04:07 Basophils % (Manual) 0 % (0.0-1.8) 02/14/16 04:07 Metamyelocytes % 0 % 02/14/16 04:07 Myelocytes % 0 % 02/14/16 04:07 Promyelocytes % 0 % 02/14/16 04:07 Blast Cells % 0 % 02/14/16 04:07 Nucleated RBC % Not Reportable 02/14/16 04:07 Seg Neutrophils # Man 14.1 K/mm3 (1.8-7.7) H 02/14/16 04:07 Band Neutrophils # 0.7 K/mm3 02/14/16 04:07 Lymphocytes # (Manual) 0.8 K/mm3 (1.2-5.4) L 02/14/16 04:07 Abs React Lymphs (Man) 0.0 K/mm3 02/14/16 04:07 Monocytes # (Manual) 1.0 K/mm3 (0.0-0.8) H 02/14/16 04:07 Eosinophils # (Manual) 0.0 K/mm3 (0.0-0.4) 02/14/16 04:07 Basophils # (Manual) 0.0 K/mm3 (0.0-0.1) 02/14/16 04:07 Metamyelocytes # 0.0 K/mm3 02/14/16 04:07 Myelocytes # 0.0 K/mm3 02/14/16 04:07 Promyelocytes # 0.0 K/mm3 02/14/16 04:07 Blast Cells # 0.0 K/mm3 02/14/16 04:07 WBC Morphology Not Reportable 02/14/16 04:07 Hypersegmented Neuts Not Reportable 02/14/16 04:07 Hyposegmented Neuts Not Reportable 02/14/16 04:07 Hypogranular Neuts Not Reportable 02/14/16 04:07 Smudge Cells Not Reportable 02/14/16 04:07 Toxic Granulation Not Reportable 02/14/16 04:07 Toxic Vacuolation Not Reportable 02/14/16 04:07 Dohle Bodies Not Reportable 02/14/16 04:07 Pelger-Huet Anomaly Not Reportable 02/14/16 04:07 Louise Rods Not Reportable 02/14/16 04:07 Platelet Estimate Consistent w auto 02/14/16 04:07 Clumped Platelets Not Reportable 02/14/16 04:07 Plt Clumps, EDTA Not Reportable 02/14/16 04:07 Large Platelets Not Reportable 02/14/16 04:07 Giant Platelets Not Reportable 02/14/16 04:07 Platelet Satelliting Not Reportable 02/14/16 04:07 Plt Morphology Comment Not Reportable 02/14/16 04:07 RBC Morphology Not Reportable 02/14/16 04:07 Dimorphic RBCs Not Reportable 02/14/16 04:07 Polychromasia Not Reportable 02/14/16 04:07 Hypochromasia Not Reportable 02/14/16 04:07 Poikilocytosis Not Reportable 02/14/16 04:07 Anisocytosis 1+ 02/14/16 04:07 Microcytosis Not Reportable 02/14/16 04:07 Macrocytosis Not Reportable 02/14/16 04:07 Spherocytes Not Reportable 02/14/16 04:07 Pappenheimer Bodies Not Reportable 02/14/16 04:07 Sickle Cells Not Reportable 02/14/16 04:07 Target Cells Not Reportable 02/14/16 04:07 Tear Drop Cells Not Reportable 02/14/16 04:07 Ovalocytes Not Reportable 02/14/16 04:07 Helmet Cells Not Reportable 02/14/16 04:07 Gonzalez-[place] Bodies Not Reportable 02/14/16 04:07 [place] Rings Not Reportable 02/14/16 04:07 Rell Cells Not Reportable 02/14/16 04:07 Bite Cells Not Reportable 02/14/16 04:07 Crenated Cell Not Reportable 02/14/16 04:07 Elliptocytes Not Reportable 02/14/16 04:07 Acanthocytes (Spur) Not Reportable 02/14/16 04:07 Rouleaux Not Reportable 02/14/16 04:07 Hemoglobin C Crystals Not Reportable 02/14/16 04:07 Schistocytes Not Reportable 02/14/16 04:07 Malaria parasites Not Reportable 02/14/16 04:07 Jayesh Bodies Not Reportable 02/14/16 04:07 Hem Pathologist Commnt No 02/14/16 04:07 POC ABG pH 7.457 (7.35-7.45) H 02/12/16 22:01 POC ABG pCO2 44.0 (35-45) 02/12/16 22:01 POC ABG pO2 104 (80-105) 02/12/16 22:01 POC ABG HCO3 31.1 02/12/16 22:01 POC ABG Total CO2 32 02/12/16 22:01 POC ABG O2 Sat 98 02/12/16 22:01 POC ABG Base Excess 7 02/12/16 22:01 FiO2 4 % 02/12/16 22:01 Sodium 144 mmol/L (137-145) 02/14/16 04:07 Potassium 4.5 mmol/L (3.6-5.0) 02/14/16 04:07 Chloride 105.2 mmol/L (98-107) 02/14/16 04:07 Carbon Dioxide 30 mmol/L (22-30) 02/14/16 04:07 Anion Gap 13 mmol/L 02/14/16 04:07 BUN 16 mg/dL (9-20) 02/14/16 04:07 Creatinine 0.7 mg/dL (0.8-1.5) L 02/14/16 04:07 Estimated GFR > 60 ml/min 02/14/16 04:07 BUN/Creatinine Ratio 22.85 % 02/14/16 04:07 Glucose 103 mg/dL (75-100) H 02/14/16 04:07 POC Glucose 80 (70-105) 02/14/16 11:30 Hemoglobin A1c 6.9 % (4-6) H 02/12/16 15:33 Calcium 8.1 mg/dL (8.4-10.2) L 02/14/16 04:07 Total Bilirubin 0.5 mg/dL (0.1-1.2) 02/13/16 04:15 AST 8 units/L (5-40) 02/13/16 04:15 ALT 10 units/L (7-56) 02/13/16 04:15 Alkaline Phosphatase 50 units/L (35-129) 02/13/16 04:15 Troponin T 0.014 ng/mL (0.00-0.029) 02/12/16 15:32 Total Protein 5.3 g/dL (6.3-8.2) L 02/13/16 04:15 Albumin 2.9 g/dL (3.9-5) L 02/13/16 04:15 Albumin/Globulin Ratio 1.2 % 02/13/16 04:15 Microbiology 02/12/16 17:56 Peripheral/Venous Blood Culture - Preliminary NO GROWTH AFTER 24 HOURS 02/12/16 17:56 Peripheral/Venous Blood Culture - Preliminary NO GROWTH AFTER 24 HOURS
[2016-02-14] MEDS: PERCOCET 5/325 PO PRN (20:34)
[2016-02-14] MEDS: PULMICORT IH SCH (20:50)
[2016-02-14] MEDS: PEPCID PO SCH (22:19)
[2016-02-14] MEDS: BROVANA NEBU IH SCH (22:34)
[2016-02-15] MEDS: DUONEB 0.5 MG-3 MG/3 ML SOLN IH SCH ×6 (01:49→21:16)
[2016-02-15] MEDS: PERCOCET 5/325 PO PRN ×2 (06:46→21:51)
[2016-02-15] MEDS: PULMICORT IH SCH ×2 (08:19→21:13)
[2016-02-15] MEDS: BROVANA NEBU IH SCH ×2 (08:20→21:17)
--- NOTE | 2016-02-15 13:41 | Progress Note ---
Assessment and Plan Assessment and plan: 1. COPD exacerbation with chronic respiratory failure- improving and stable; will cont nebulization treatments; transfer to medical floor; cont steroid; levaquin to 500mg daily; cont brovana and pulmicort. 2. CHF - appears compensated; EF unknown; cont current meds; eCHO to eval EF 3. 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 Benign HTN- control; cont current meds and adjust as needed 5. BPH- cont meds 6. Debility- PT eval; await LTACH evaluation 7. DVT prophylaxis- lovenox awaiting bed on the floor and LTACH eval History Interval history: No new issues overnight. Hospitalist Physical - Constitutional Vitals: Temp Pulse Resp BP Pulse Ox 98 F 76 18 143/71 99 02/15/16 12:00 02/15/16 13:23 02/15/16 13:23 02/15/16 08:00 02/15/16 08:22 General appearance: Present: no acute distress (on [place] oxygen), well-nourished - EENT Eyes: Present: PERRL, EOM intact ENT: hearing intact, clear oral mucosa, dentition normal - Neck Neck: Present: supple, normal ROM - Respiratory Respiratory effort: normal Respiratory: bilateral: diminished, rhonchi - Cardiovascular Rhythm: regular Heart Sounds: Present: S1 & S2. Absent: gallop, rub - Extremities Extremities: no ischemia, No edema, Full ROM - Abdominal General gastrointestinal: soft, non-tender, non-distended, normal bowel sounds - Integumentary Integumentary: Present: clear, warm, dry - Neurologic Neurologic: CNII-XII intact, moves all extremities Results - Labs CBC & Chem 7: 02/14/16 04:07 02/14/16 04:07 Labs: Laboratory Last Values WBC 16.6 K/mm3 (4.5-11.0) H 02/14/16 04:07 RBC 3.27 M/mm3 (3.65-5.03) L 02/14/16 04:07 Hgb 9.3 gm/dl (11.8-15.2) L 02/14/16 04:07 Hct 29.7 % (35.5-45.6) L 02/14/16 04:07 MCV 91 fl (84-94) 02/14/16 04:07 MCH 28 pg (28-32) 02/14/16 04:07 MCHC 31 % (32-34) L 02/14/16 04:07 RDW 16.6 % (13.2-15.2) H 02/14/16 04:07 Plt Count 317 K/mm3 (140-440) 02/14/16 04:07 [place] % (Auto) Development Expert 02/14/16 04:07 Add Manual Diff Complete 02/14/16 04:07 Total Counted 100 02/14/16 04:07 Seg Neutrophils % Development Expert 02/13/16 04:15 Seg Neuts % (Manual) 85.0 % (40.0-70.0) H 02/14/16 04:07 Band Neutrophils % 4.0 % 02/14/16 04:07 Lymphocytes % (Manual) 5.0 % (13.4-35.0) L 02/14/16 04:07 Reactive Lymphs % (Man) 0 % 02/14/16 04:07 Monocytes % (Manual) 6.0 % (0.0-7.3) 02/14/16 04:07 Eosinophils % (Manual) 0 % (0.0-4.3) 02/14/16 04:07 Basophils % (Manual) 0 % (0.0-1.8) 02/14/16 04:07 Metamyelocytes % 0 % 02/14/16 04:07 Myelocytes % 0 % 02/14/16 04:07 Promyelocytes % 0 % 02/14/16 04:07 Blast Cells % 0 % 02/14/16 04:07 Nucleated RBC % Not Reportable 02/14/16 04:07 Seg Neutrophils # Man 14.1 K/mm3 (1.8-7.7) H 02/14/16 04:07 Band Neutrophils # 0.7 K/mm3 02/14/16 04:07 Lymphocytes # (Manual) 0.8 K/mm3 (1.2-5.4) L 02/14/16 04:07 Abs React Lymphs (Man) 0.0 K/mm3 02/14/16 04:07 Monocytes # (Manual) 1.0 K/mm3 (0.0-0.8) H 02/14/16 04:07 Eosinophils # (Manual) 0.0 K/mm3 (0.0-0.4) 02/14/16 04:07 Basophils # (Manual) 0.0 K/mm3 (0.0-0.1) 02/14/16 04:07 Metamyelocytes # 0.0 K/mm3 02/14/16 04:07 Myelocytes # 0.0 K/mm3 02/14/16 04:07 Promyelocytes # 0.0 K/mm3 02/14/16 04:07 Blast Cells # 0.0 K/mm3 02/14/16 04:07 WBC Morphology Not Reportable 02/14/16 04:07 Hypersegmented Neuts Not Reportable 02/14/16 04:07 Hyposegmented Neuts Not Reportable 02/14/16 04:07 Hypogranular Neuts Not Reportable 02/14/16 04:07 Smudge Cells Not Reportable 02/14/16 04:07 Toxic Granulation Not Reportable 02/14/16 04:07 Toxic Vacuolation Not Reportable 02/14/16 04:07 Dohle Bodies Not Reportable 02/14/16 04:07 Pelger-Huet Anomaly Not Reportable 02/14/16 04:07 Louise Rods Not Reportable 02/14/16 04:07 Platelet Estimate Consistent w auto 02/14/16 04:07 Clumped Platelets Not Reportable 02/14/16 04:07 Plt Clumps, EDTA Not Reportable 02/14/16 04:07 Large Platelets Not Reportable 02/14/16 04:07 Giant Platelets Not Reportable 02/14/16 04:07 Platelet Satelliting Not Reportable 02/14/16 04:07 Plt Morphology Comment Not Reportable 02/14/16 04:07 RBC Morphology Not Reportable 02/14/16 04:07 Dimorphic RBCs Not Reportable 02/14/16 04:07 Polychromasia Not Reportable 02/14/16 04:07 Hypochromasia Not Reportable 02/14/16 04:07 Poikilocytosis Not Reportable 02/14/16 04:07 Anisocytosis 1+ 02/14/16 04:07 Microcytosis Not Reportable 02/14/16 04:07 Macrocytosis Not Reportable 02/14/16 04:07 Spherocytes Not Reportable 02/14/16 04:07 Pappenheimer Bodies Not Reportable 02/14/16 04:07 Sickle Cells Not Reportable 02/14/16 04:07 Target Cells Not Reportable 02/14/16 04:07 Tear Drop Cells Not Reportable 02/14/16 04:07 Ovalocytes Not Reportable 02/14/16 04:07 Helmet Cells Not Reportable 02/14/16 04:07 [place] Bodies Not Reportable 02/14/16 04:07 [place] Rings Not Reportable 02/14/16 04:07 [place] Cells Not Reportable 02/14/16 04:07 Bite Cells Not Reportable 02/14/16 04:07 Crenated Cell Not Reportable 02/14/16 04:07 Elliptocytes Not Reportable 02/14/16 04:07 Acanthocytes (Spur) Not Reportable 02/14/16 04:07 Rouleaux Not Reportable 02/14/16 04:07 Hemoglobin C Crystals Not Reportable 02/14/16 04:07 Schistocytes Not Reportable 02/14/16 04:07 Malaria parasites Not Reportable 02/14/16 04:07 Jayesh Bodies Not Reportable 02/14/16 04:07 Hem Pathologist Commnt No 02/14/16 04:07 POC ABG pH 7.457 (7.35-7.45) H 02/12/16 22:01 POC ABG pCO2 44.0 (35-45) 02/12/16 22:01 POC ABG pO2 104 (80-105) 02/12/16 22:01 POC ABG HCO3 31.1 02/12/16 22:01 POC ABG Total CO2 32 02/12/16 22:01 POC ABG O2 Sat 98 02/12/16 22:01 POC ABG Base Excess 7 02/12/16 22:01 FiO2 4 % 02/12/16 22:01 Sodium 144 mmol/L (137-145) 02/14/16 04:07 Potassium 4.5 mmol/L (3.6-5.0) 02/14/16 04:07 Chloride 105.2 mmol/L (98-107) 02/14/16 04:07 Carbon Dioxide 30 mmol/L (22-30) 02/14/16 04:07 Anion Gap 13 mmol/L 02/14/16 04:07 BUN 16 mg/dL (9-20) 02/14/16 04:07 Creatinine 0.7 mg/dL (0.8-1.5) L 02/14/16 04:07 Estimated GFR > 60 ml/min 02/14/16 04:07 BUN/Creatinine Ratio 22.85 % 02/14/16 04:07 Glucose 103 mg/dL (75-100) H 02/14/16 04:07 POC Glucose 163 (70-105) H 02/15/16 12:06 Hemoglobin A1c 6.9 % (4-6) H 02/12/16 15:33 Calcium 8.1 mg/dL (8.4-10.2) L 02/14/16 04:07 Total Bilirubin 0.5 mg/dL (0.1-1.2) 02/13/16 04:15 AST 8 units/L (5-40) 02/13/16 04:15 ALT 10 units/L (7-56) 02/13/16 04:15 Alkaline Phosphatase 50 units/L (35-129) 02/13/16 04:15 Troponin T 0.014 ng/mL (0.00-0.029) 02/12/16 15:32 Total Protein 5.3 g/dL (6.3-8.2) L 02/13/16 04:15 Albumin 2.9 g/dL (3.9-5) L 02/13/16 04:15 Albumin/Globulin Ratio 1.2 % 02/13/16 04:15
--- NOTE | 2016-02-15 16:09 | Consultation ---
History of Present Illness - Reason for Consult Consult date: 02/15/16 Evaluate for Acute IRU - History of Present Illness 66 y.o. male admitted for acute on chronic COPD exacerbation. Pt reports multiple hospitalizations at [facility] over the last month and a half; most recently also for COPD. Pt states he was at home for approximately 1 week prior to reporting to the ER here as he was "just not getting any better." On today, pt is resting comfortably; on nasal cannula. Consult requested for post- acute placement recommendations. Past History Past Medical History: COPD, diabetes, heart failure, hypertension, other (BPH) Past Surgical History: tonsillectomy Social history: lives with family (son and grandson). denies: smoking (quit 9 years ago) Family history: no significant family history Medications and Allergies Allergies Allergy/AdvReac Type Severity Reaction Status Date / Time No Known Allergies Allergy Unverified 02/12/16 14:59 Home Medications Medication Instructions Recorded Confirmed Last Taken Type ALBUTEROL Inhaler [Proair] 2 puff IH QID PRN 02/12/16 02/12/16 Unknown History ALPRAZolam [Xanax TAB] 0.5 mg PO BID PRN 02/12/16 02/12/16 Unknown History Clopidogrel Bisulfate [Plavix] 75 mg PO DAILY 02/12/16 02/12/16 Unknown History Finasteride [Proscar] 5 mg PO QDAY 02/12/16 02/12/16 Unknown History Insulin Aspart [NovoLOG Flexpen] 0 units SQ AC 02/12/16 02/12/16 Unknown History Insulin Detemir [Levemir Flextouch] 20 unit SQ QHS 02/12/16 02/12/16 Unknown History Ipratropium [Atrovent] 0.5 mg IH Q8HRT 02/12/16 02/12/16 Unknown History Lisinopril [Zestril] 5 mg PO QDAY 02/12/16 02/12/16 Unknown History Tamsulosin [Flomax] 0.4 mg PO QDAY 02/12/16 02/12/16 Unknown History Tiotropium [Spiriva] 18 mcg IH QDAY 02/12/16 02/12/16 Unknown History amLODIPine [Norvasc] 10 mg PO DAILY 02/12/16 02/12/16 Unknown History predniSONE [Deltasone] 40 mg PO QDAY 02/12/16 02/12/16 Unknown History Active Meds: Active Medications Acetaminophen (Tylenol) 650 mg PO Q4H PRN PRN Reason: Pain MILD(1-3)/Fever >100.5/RAMOS Albuterol (Proventil) 2.5 mg IH Q3HRT PRN PRN Reason: Wheezing/ SOB Albuterol/Ipratropium (Duoneb 0.5 Mg-3 Mg/3 Ml Soln) 1 ampul IH Q6HRT [facility] Last Admin: 02/15/16 13:23 Dose: Not Given Alprazolam (Xanax) 0.5 mg PO BID PRN PRN Reason: Anxiety Last Admin: 02/14/16 00:18 Dose: 0.5 mg Amlodipine Besylate (Norvasc) 10 mg PO DAILY [facility] Last Admin: 02/14/16 09:50 Dose: 10 mg Arformoterol Tartrate (Brovana Nebu) 15 mcg IH Q12HRT [facility] Last Admin: 02/15/16 08:20 Dose: 15 mcg Bisacodyl (Dulcolax) 10 mg [place] QDAY PRN PRN Reason: Constipation unrelieved by MOM Budesonide (Pulmicort) 0.5 mg IH Q12HRT [facility] Last Admin: 02/15/16 08:19 Dose: 0.5 mg Clopidogrel Bisulfate (Plavix) 75 mg PO DAILY [facility] Last Admin: 02/14/16 09:47 Dose: 75 mg Enoxaparin Sodium (Lovenox) 40 mg SUB-Q QDAY [facility] Last Admin: 02/14/16 09:49 Dose: 40 mg Famotidine (Pepcid) 20 mg PO BID [facility] Last Admin: 02/14/16 22:19 Dose: 20 mg Finasteride (Proscar) 5 mg PO QDAY [facility] Last Admin: 02/14/16 09:48 Dose: 5 mg Hydromorphone HCl (Dilaudid) 0.5 mg IV Q3H PRN PRN Reason: Pain , Severe (7-10) Insulin Detemir (Levemir) 20 units SUB-Q QHS [facility] Last Admin: 02/14/16 00:16 Dose: 20 units Insulin Human Regular (Novolin R) 0 units SUB-Q ACHS [facility] PRN Reason: Protocol Last Admin: 02/15/16 12:41 Dose: 1 units Lisinopril (Zestril) 5 mg PO QDAY [facility] Last Admin: 02/14/16 09:47 Dose: 5 mg Magnesium Hydroxide (Milk Of Magnesia) 30 ml PO Q4H PRN PRN Reason: Constipation Methylprednisolone Sodium Succinate (Solu-Medrol) 40 mg IV Q24H [facility] Last Admin: 02/14/16 09:47 Dose: 40 mg Ondansetron HCl (Zofran) 4 mg IV Q8H PRN PRN Reason: N/V unrelieved by Reglan Oxycodone/Acetaminophen (Percocet 5/325) 1 tab PO Q6H PRN PRN Reason: Pain, Moderate (4-6) Last Admin: 02/15/16 06:46 Dose: 1 tab Tamsulosin HCl (Flomax) 0.4 mg PO QDAY [facility] Last Admin: 02/14/16 09:48 Dose: 0.4 mg Theophylline (Petros-24) 200 mg PO QDAY [facility] Review of Systems All systems: negative Ears, nose, mouth and throat: no headache Cardiovascular: no chest pain, no lightheadedness Respiratory: cough, shortness of breath, dyspnea on exertion Gastrointestinal: no nausea, no vomiting, no constipation Genitourinary Male: no dysuria Musculoskeletal: gait dysfunction Exam - Constitutional Vitals: Vital Signs - 12hr 02/15/16 02/15/16 02/15/16 05:00 05:36 06:00 Temperature Pulse Rate 76 79 79 Pulse Rate [ Anterior Bilateral Throughout] Respiratory 12 13 14 Rate Respiratory Rate [Anterior Bilateral Throughout] Blood Pressure 119/64 135/67 143/69 O2 Sat by Pulse 99 99 99 Oximetry 02/15/16 02/15/16 02/15/16 07:00 07:20 08:00 Temperature 97.7 F Pulse Rate 78 75 Pulse Rate [ Anterior Bilateral Throughout] Respiratory 11 L 17 11 L Rate Respiratory Rate [Anterior Bilateral Throughout] Blood Pressure 138/68 143/71 O2 Sat by Pulse 99 97 97 Oximetry 02/15/16 02/15/16 02/15/16 08:21 08:22 08:36 Temperature Pulse Rate Pulse Rate [ 76 78 Anterior Bilateral Throughout] Respiratory Rate Respiratory 20 20 Rate [Anterior Bilateral Throughout] Blood Pressure O2 Sat by Pulse 99 Oximetry 02/15/16 02/15/1617 12:00 13:23 13:38 Temperature 98 F Pulse Rate Pulse Rate [ 76 78 Anterior Bilateral Throughout] Respiratory Rate Respiratory 18 18 Rate [Anterior Bilateral Throughout] Blood Pressure O2 Sat by Pulse Oximetry General appearance: no acute distress - EENT Eyes: EOM intact ENT: hearing intact - Neck Neck: supple, normal ROM - Respiratory Respiratory effort: normal Respiratory: bilateral: wheezing (occasional) - Cardiovascular Heart Sounds: Present: S1 & S2 - Extremities Extremities: No edema - Gastrointestinal General gastrointestinal: Present: soft, non-tender, non-distended, normal bowel sounds - Integumentary Integumentary: Present: clear - Neurologic Neurologic: CNII-XII intact, moves all extremities (4/5 strength ) - Psychiatric Psychiatric: appropriate mood/affect, intact judgment & insight, memory intact, cooperative - Allied health notes Allied health notes reviewed: PT (SBA/Supervision for transfers and gait, ambulated 20 feet) FIMS assesment as documented by PT/OT/ST: Locomotion- walk/wheelchair Ambulation Distance 20 - Labs CBC & Chem 7: 02/14/16 04:07 02/14/16 04:07 Labs: Laboratory Results - last 72 hr 02/12/16 02/12/16 02/12/16 22:01 22:04 23:39 WBC RBC Hgb Hct MCV MCH MCHC RDW Plt Count [place] % (Auto) Add Manual Diff Total Counted Seg Neutrophils % Seg Neuts % (Manual) Band Neutrophils % Lymphocytes % (Manual) Reactive Lymphs % (Man) Monocytes % (Manual) Eosinophils % (Manual) Basophils % (Manual) Metamyelocytes % Myelocytes % Promyelocytes % Blast Cells % Nucleated RBC % Seg Neutrophils # Man Band Neutrophils # Lymphocytes # (Manual) Abs React Lymphs (Man) Monocytes # (Manual) Eosinophils # (Manual) Basophils # (Manual) Metamyelocytes # Myelocytes # Promyelocytes # Blast Cells # WBC Morphology Hypersegmented Neuts Hyposegmented Neuts Hypogranular Neuts Smudge Cells Toxic Granulation Toxic Vacuolation Dohle Bodies Pelger-Huet Anomaly Louise Rods Platelet Estimate Clumped Platelets Plt Clumps, EDTA Large Platelets Giant Platelets Platelet Satelliting Plt Morphology Comment RBC Morphology Dimorphic RBCs Polychromasia Hypochromasia Poikilocytosis Anisocytosis Microcytosis Macrocytosis Spherocytes Pappenheimer Bodies Sickle Cells Target Cells Tear Drop Cells Ovalocytes Helmet Cells Gonzalez-Sinai Bodies [place] Rings Rell Cells Bite Cells Crenated Cell Elliptocytes Acanthocytes (Spur) Rouleaux Hemoglobin C Crystals Schistocytes Malaria parasites Jayesh Bodies Hem Pathologist Commnt POC ABG pH 7.457 H POC ABG pCO2 44.0 POC ABG pO2 104 POC ABG HCO3 31.1 POC ABG Total CO2 32 POC ABG O2 Sat 98 POC ABG Base Excess 7 FiO2 4 Sodium Potassium Chloride Carbon Dioxide Anion Gap BUN Creatinine Estimated GFR BUN/Creatinine Ratio Glucose POC Glucose 313 H 296 H Calcium Total Bilirubin AST ALT Alkaline Phosphatase Total Protein Albumin Albumin/Globulin Ratio 02/13/16 02/13/16 02/13/16 04:15 04:15 08:05 WBC 14.8 H RBC 3.46 L Hgb 9.7 L Hct 31.5 L MCV 91 MCH 28 MCHC 31 L RDW 16.6 H Plt Count 312 [place] % (Auto) Add Manual Diff Complete Total Counted 100 Seg Neutrophils % Ict Teacher Seg Neuts % (Manual) 91.0 H Band Neutrophils % 6.0 Lymphocytes % (Manual) 2.0 L Reactive Lymphs % (Man) 0 Monocytes % (Manual) 1.0 Eosinophils % (Manual) 0 Basophils % (Manual) 0 Metamyelocytes % 0 Myelocytes % 0 Promyelocytes % 0 Blast Cells % 0 Nucleated RBC % Not Reportable Seg Neutrophils # Man 13.5 H Band Neutrophils # 0.9 Lymphocytes # (Manual) 0.3 L Abs React Lymphs (Man) 0.0 Monocytes # (Manual) 0.1 Eosinophils # (Manual) 0.0 Basophils # (Manual) 0.0 Metamyelocytes # 0.0 Myelocytes # 0.0 Promyelocytes # 0.0 Blast Cells # 0.0 WBC Morphology Not Reportable Hypersegmented Neuts Not Reportable Hyposegmented Neuts Not Reportable Hypogranular Neuts Not Reportable Smudge Cells Not Reportable Toxic Granulation Not Reportable Toxic Vacuolation Not Reportable Dohle Bodies Not Reportable Pelger-Huet Anomaly Not Reportable Louise Rods Not Reportable Platelet Estimate Consistent w auto Clumped Platelets Not Reportable Plt Clumps, EDTA Not Reportable Large Platelets Not Reportable Giant Platelets Not Reportable Platelet Satelliting Not Reportable Plt Morphology Comment Not Reportable RBC Morphology Not Reportable Dimorphic RBCs Not Reportable Polychromasia Not Reportable Hypochromasia Not Reportable Poikilocytosis Not Reportable Anisocytosis 1+ Microcytosis Not Reportable Macrocytosis Not Reportable Spherocytes Not Reportable Pappenheimer Bodies Not Reportable Sickle Cells Not Reportable Target Cells Not Reportable Tear Drop Cells Not Reportable Ovalocytes Not Reportable Helmet Cells Not Reportable Gonzalez-Sinai Bodies Not Reportable [place] Rings Not Reportable Rell Cells Not Reportable Bite Cells Not Reportable Crenated Cell Not Reportable Elliptocytes Not Reportable Acanthocytes (Spur) Not Reportable Rouleaux Not Reportable Hemoglobin C Crystals Not Reportable Schistocytes Not Reportable Malaria parasites Not Reportable Jayesh Bodies Not Reportable Hem Pathologist Commnt No POC ABG pH POC ABG pCO2 POC ABG pO2 POC ABG HCO3 POC ABG Total CO2 POC ABG O2 Sat POC ABG Base Excess FiO2 Sodium 138 Potassium 4.4 Chloride 98.6 Carbon Dioxide 32 H Anion Gap 12 BUN 23 H Creatinine 1.0 Estimated GFR > 60 BUN/Creatinine Ratio 23.00 Glucose 160 H POC Glucose 154 H Calcium 8.1 L Total Bilirubin 0.5 AST 8 ALT 10 Alkaline Phosphatase 50 Total Protein 5.3 L Albumin 2.9 L Albumin/Globulin Ratio 1.2 02/13/16 02/13/16 02/13/16 11:59 16:35 23:45 WBC RBC Hgb Hct MCV MCH MCHC RDW Plt Count [place] % (Auto) Add Manual Diff Total Counted Seg Neutrophils % Seg Neuts % (Manual) Band Neutrophils % Lymphocytes % (Manual) Reactive Lymphs % (Man) Monocytes % (Manual) Eosinophils % (Manual) Basophils % (Manual) Metamyelocytes % Myelocytes % Promyelocytes % Blast Cells % Nucleated RBC % Seg Neutrophils # Man Band Neutrophils # Lymphocytes # (Manual) Abs React Lymphs (Man) Monocytes # (Manual) Eosinophils # (Manual) Basophils # (Manual) Metamyelocytes # Myelocytes # Promyelocytes # Blast Cells # WBC Morphology Hypersegmented Neuts Hyposegmented Neuts Hypogranular Neuts Smudge Cells Toxic Granulation Toxic Vacuolation Dohle Bodies Pelger-Huet Anomaly Louise Rods Platelet Estimate Clumped Platelets Plt Clumps, EDTA Large Platelets Giant Platelets Platelet Satelliting Plt Morphology Comment RBC Morphology Dimorphic RBCs Polychromasia Hypochromasia Poikilocytosis Anisocytosis Microcytosis Macrocytosis Spherocytes Pappenheimer Bodies Sickle Cells Target Cells Tear Drop Cells Ovalocytes Helmet Cells Gonzalez-Sinai Bodies [place] Rings [place] Cells Bite Cells Crenated Cell Elliptocytes Acanthocytes (Spur) Rouleaux Hemoglobin C Crystals Schistocytes Malaria parasites Jayesh Bodies Hem Pathologist Commnt POC ABG pH POC ABG pCO2 POC ABG pO2 POC ABG HCO3 POC ABG Total CO2 POC ABG O2 Sat POC ABG Base Excess FiO2 Sodium Potassium Chloride Carbon Dioxide Anion Gap BUN Creatinine Estimated GFR BUN/Creatinine Ratio Glucose POC Glucose 167 H 181 H 115 H Calcium Total Bilirubin AST ALT Alkaline Phosphatase Total Protein Albumin Albumin/Globulin Ratio 02/14/16 02/14/16 02/14/16 04:07 04:07 07:36 WBC 16.6 H RBC 3.27 L Hgb 9.3 L Hct 29.7 L MCV 91 MCH 28 MCHC 31 L RDW 16.6 H Plt Count 317 [place] % (Auto) Ict Teacher Add Manual Diff Complete Total Counted 100 Seg Neutrophils % Seg Neuts % (Manual) 85.0 H Band Neutrophils % 4.0 Lymphocytes % (Manual) 5.0 L Reactive Lymphs % (Man) 0 Monocytes % (Manual) 6.0 Eosinophils % (Manual) 0 Basophils % (Manual) 0 Metamyelocytes % 0 Myelocytes % 0 Promyelocytes % 0 Blast Cells % 0 Nucleated RBC % Not Reportable Seg Neutrophils # Man 14.1 H Band Neutrophils # 0.7 Lymphocytes # (Manual) 0.8 L Abs React Lymphs (Man) 0.0 Monocytes # (Manual) 1.0 H Eosinophils # (Manual) 0.0 Basophils # (Manual) 0.0 Metamyelocytes # 0.0 Myelocytes # 0.0 Promyelocytes # 0.0 Blast Cells # 0.0 WBC Morphology Not Reportable Hypersegmented Neuts Not Reportable Hyposegmented Neuts Not Reportable Hypogranular Neuts Not Reportable Smudge Cells Not Reportable Toxic Granulation Not Reportable Toxic Vacuolation Not Reportable Dohle Bodies Not Reportable Pelger-Huet Anomaly Not Reportable Louise Rods Not Reportable Platelet Estimate Consistent w auto Clumped Platelets Not Reportable Plt Clumps, EDTA Not Reportable Large Platelets Not Reportable Giant Platelets Not Reportable Platelet Satelliting Not Reportable Plt Morphology Comment Not Reportable RBC Morphology Not Reportable Dimorphic RBCs Not Reportable Polychromasia Not Reportable Hypochromasia Not Reportable Poikilocytosis Not Reportable Anisocytosis 1+ Microcytosis Not Reportable Macrocytosis Not Reportable Spherocytes Not Reportable Pappenheimer Bodies Not Reportable Sickle Cells Not Reportable Target Cells Not Reportable Tear Drop Cells Not Reportable Ovalocytes Not Reportable Helmet Cells Not Reportable Gonzalez-Sinai Bodies Not Reportable [place] Rings Not Reportable Rell Cells Not Reportable Bite Cells Not Reportable Crenated Cell Not Reportable Elliptocytes Not Reportable Acanthocytes (Spur) Not Reportable Rouleaux Not Reportable Hemoglobin C Crystals Not Reportable Schistocytes Not Reportable Malaria parasites Not Reportable Jayesh Bodies Not Reportable Hem Pathologist Commnt No POC ABG pH POC ABG pCO2 POC ABG pO2 POC ABG HCO3 POC ABG Total CO2 POC ABG O2 Sat POC ABG Base Excess FiO2 Sodium 144 Potassium 4.5 Chloride 105.2 Carbon Dioxide 30 Anion Gap 13 BUN 16 Creatinine 0.7 L Estimated GFR > 60 BUN/Creatinine Ratio 22.85 Glucose 103 H POC Glucose 79 Calcium 8.1 L Total Bilirubin AST ALT Alkaline Phosphatase Total Protein Albumin Albumin/Globulin Ratio 02/14/16 02/14/16 02/14/16 11:30 15:20 21:35 WBC RBC Hgb Hct MCV MCH MCHC RDW Plt Count [place] % (Auto) Add Manual Diff Total Counted Seg Neutrophils % Seg Neuts % (Manual) Band Neutrophils % Lymphocytes % (Manual) Reactive Lymphs % (Man) Monocytes % (Manual) Eosinophils % (Manual) Basophils % (Manual) Metamyelocytes % Myelocytes % Promyelocytes % Blast Cells % Nucleated RBC % Seg Neutrophils # Man Band Neutrophils # Lymphocytes # (Manual) Abs React Lymphs (Man) Monocytes # (Manual) Eosinophils # (Manual) Basophils # (Manual) Metamyelocytes # Myelocytes # Promyelocytes # Blast Cells # WBC Morphology Hypersegmented Neuts Hyposegmented Neuts Hypogranular Neuts Smudge Cells Toxic Granulation Toxic Vacuolation Dohle Bodies Pelger-Huet Anomaly Louise Rods Platelet Estimate Clumped Platelets Plt Clumps, EDTA Large Platelets Giant Platelets Platelet Satelliting Plt Morphology Comment RBC Morphology Dimorphic RBCs Polychromasia Hypochromasia Poikilocytosis Anisocytosis Microcytosis Macrocytosis Spherocytes Pappenheimer Bodies Sickle Cells Target Cells Tear Drop Cells Ovalocytes Helmet Cells Gonzalez-Sinai Bodies [place] Rings Rell Cells Bite Cells Crenated Cell Elliptocytes Acanthocytes (Spur) Rouleaux Hemoglobin C Crystals Schistocytes Malaria parasites Jayesh Bodies Hem Pathologist Commnt POC ABG pH POC ABG pCO2 POC ABG pO2 POC ABG HCO3 POC ABG Total CO2 POC ABG O2 Sat POC ABG Base Excess FiO2 Sodium Potassium Chloride Carbon Dioxide Anion Gap BUN Creatinine Estimated GFR BUN/Creatinine Ratio Glucose POC Glucose 80 115 H 125 H Calcium Total Bilirubin AST ALT Alkaline Phosphatase Total Protein Albumin Albumin/Globulin Ratio 02/15/16 02/15/16 07:32 12:06 WBC RBC Hgb Hct MCV MCH MCHC RDW Plt Count [place] % (Auto) Add Manual Diff Total Counted Seg Neutrophils % Seg Neuts % (Manual) Band Neutrophils % Lymphocytes % (Manual) Reactive Lymphs % (Man) Monocytes % (Manual) Eosinophils % (Manual) Basophils % (Manual) Metamyelocytes % Myelocytes % Promyelocytes % Blast Cells % Nucleated RBC % Seg Neutrophils # Man Band Neutrophils # Lymphocytes # (Manual) Abs React Lymphs (Man) Monocytes # (Manual) Eosinophils # (Manual) Basophils # (Manual) Metamyelocytes # Myelocytes # Promyelocytes # Blast Cells # WBC Morphology Hypersegmented Neuts Hyposegmented Neuts Hypogranular Neuts Smudge Cells Toxic Granulation Toxic Vacuolation Dohle Bodies Pelger-Huet Anomaly Louise Rods Platelet Estimate Clumped Platelets Plt Clumps, EDTA Large Platelets Giant Platelets Platelet Satelliting Plt Morphology Comment RBC Morphology Dimorphic RBCs Polychromasia Hypochromasia Poikilocytosis Anisocytosis Microcytosis Macrocytosis Spherocytes Pappenheimer Bodies Sickle Cells Target Cells Tear Drop Cells Ovalocytes Helmet Cells Gonzalez-Sinai Bodies [place] Rings Rell Cells Bite Cells Crenated Cell Elliptocytes Acanthocytes (Spur) Rouleaux Hemoglobin C Crystals Schistocytes Malaria parasites Jayesh Bodies Hem Pathologist Commnt POC ABG pH POC ABG pCO2 POC ABG pO2 POC ABG HCO3 POC ABG Total CO2 POC ABG O2 Sat POC ABG Base Excess FiO2 Sodium Potassium Chloride Carbon Dioxide Anion Gap BUN Creatinine Estimated GFR BUN/Creatinine Ratio Glucose POC Glucose 87 163 H Calcium Total Bilirubin AST ALT Alkaline Phosphatase Total Protein Albumin Albumin/Globulin Ratio Assessment and Plan Patient was assessed and evaluated for Acute Inpatient Rehab Unit. 66 y.o. male with multiple admissions for COPD, chronic respiratory failure; does not wish to ever be intubated. Post-acute care options discussed with patient in detail; pt is being evaluated by LTACH, as well. PT evaluation completed; pt is noted to be at supervision level for transfers and ambulation; +shortness of breath with activity, limiting gait distance. Pt is not appropriate at this time for IRU placement as he does not require assistance with functional mobility; pt requires oxygen via nasal cannula at baseline. Would recommend [facility] vs home with home health, if pt is not appropriate for LTACH. Please call for any further questions or change in status. Thank you for consultation. - Patient Problems (1) COPD exacerbation Current Visit: Yes Status: Acute (2) Unsteady gait Current Visit: Yes Status: Acute
--- NOTE | 2016-02-15 18:59 | Progress Note ---
Assessment and Plan Imp: 1. Centrilobular emphysema, end-stage 2. COPD exac. 3. A/C respiratory failure, hypoxia Rec: 1. Solumedrol 2. Pulmicort/Brovana 3. Duonebs 4. Added low-dose Theophylline 5. Ambulation/placement -> PT/OT 6. Await transfer out of ICU 7. LTAC versus JEFFREY; can be discharged to either of these pulmonary-[facility] Plan of care reviewed w/ patient, he understands/agrees Subjective Date of service: 02/15/16 Principal diagnosis: COPD Interval history: No events. On home O2 dose. SOB better. No wheezing. C/o SU. No new complaints. Active Medications Acetaminophen (Tylenol) 650 mg PO Q4H PRN PRN Reason: Pain MILD(1-3)/Fever >100.5/RAMOS Albuterol (Proventil) 2.5 mg IH Q3HRT PRN PRN Reason: Wheezing/ SOB Albuterol/Ipratropium (Duoneb 0.5 Mg-3 Mg/3 Ml Soln) 1 ampul IH Q6HRT [facility] Last Admin: 02/15/16 13:23 Dose: Not Given Alprazolam (Xanax) 0.5 mg PO BID PRN PRN Reason: Anxiety Last Admin: 02/14/16 00:18 Dose: 0.5 mg Amlodipine Besylate (Norvasc) 10 mg PO DAILY [facility] Last Admin: 02/14/16 09:50 Dose: 10 mg Arformoterol Tartrate (Brovana Nebu) 15 mcg IH Q12HRT [facility] Last Admin: 02/15/16 08:20 Dose: 15 mcg Bisacodyl (Dulcolax) 10 mg AR QDAY PRN PRN Reason: Constipation unrelieved by MOM Budesonide (Pulmicort) 0.5 mg IH Q12HRT [facility] Last Admin: 02/15/16 08:19 Dose: 0.5 mg Clopidogrel Bisulfate (Plavix) 75 mg PO DAILY [facility] Last Admin: 02/14/16 09:47 Dose: 75 mg Enoxaparin Sodium (Lovenox) 40 mg SUB-Q QDAY [facility] Last Admin: 02/14/16 09:49 Dose: 40 mg Famotidine (Pepcid) 20 mg PO BID [facility] Last Admin: 02/14/16 22:19 Dose: 20 mg Finasteride (Proscar) 5 mg PO QDAY [facility] Last Admin: 02/14/16 09:48 Dose: 5 mg Hydromorphone HCl (Dilaudid) 0.5 mg IV Q3H PRN PRN Reason: Pain , Severe (7-10) Insulin Detemir (Levemir) 20 units SUB-Q QHS [facility] Last Admin: 02/14/16 00:16 Dose: 20 units Insulin Human Regular (Novolin R) 0 units SUB-Q ACHS [facility] PRN Reason: Protocol Last Admin: 02/15/16 16:41 Dose: 2 units Lisinopril (Zestril) 5 mg PO QDAY [facility] Last Admin: 02/14/16 09:47 Dose: 5 mg Magnesium Hydroxide (Milk Of Magnesia) 30 ml PO Q4H PRN PRN Reason: Constipation Methylprednisolone Sodium Succinate (Solu-Medrol) 40 mg IV Q24H [facility] Last Admin: 02/14/16 09:47 Dose: 40 mg Ondansetron HCl (Zofran) 4 mg IV Q8H PRN PRN Reason: N/V unrelieved by Reglan Oxycodone/Acetaminophen (Percocet 5/325) 1 tab PO Q6H PRN PRN Reason: Pain, Moderate (4-6) Last Admin: 02/15/16 06:46 Dose: 1 tab Tamsulosin HCl (Flomax) 0.4 mg PO QDAY [facility] Last Admin: 02/14/16 09:48 Dose: 0.4 mg Theophylline (Petros-24) 200 mg PO QDAY [facility] Objective Vital Signs - 12hr 02/15/16 02/15/16 02/15/16 07:00 07:20 08:00 Temperature 97.7 F Pulse Rate 78 75 Pulse Rate [ Anterior Bilateral Throughout] Respiratory 11 L 17 11 L Rate Respiratory Rate [Anterior Bilateral Throughout] Blood Pressure 138/68 143/71 O2 Sat by Pulse 99 97 97 Oximetry 02/15/16 02/15/16 02/15/16 08:21 08:22 08:36 Temperature Pulse Rate Pulse Rate [ 76 78 Anterior Bilateral Throughout] Respiratory Rate Respiratory 20 20 Rate [Anterior Bilateral Throughout] Blood Pressure O2 Sat by Pulse 99 Oximetry 02/15/16 02/15/16 02/15/16 08:58 09:00 10:00 Temperature Pulse Rate 72 70 80 Pulse Rate [ Anterior Bilateral Throughout] Respiratory 13 13 15 Rate Respiratory Rate [Anterior Bilateral Throughout] Blood Pressure 143/71 143/71 127/54 O2 Sat by Pulse 98 98 96 Oximetry 02/15/16 02/15/16 02/15/16 11:00 12:00 13:00 Temperature 98 F Pulse Rate 81 80 78 Pulse Rate [ Anterior Bilateral Throughout] Respiratory 14 15 15 Rate Respiratory Rate [Anterior Bilateral Throughout] Blood Pressure 138/65 134/61 120/56 O2 Sat by Pulse 97 94 96 Oximetry 02/15/16 02/15/16 02/15/16 13:23 13:38 14:13 Temperature Pulse Rate 91 H Pulse Rate [ 76 78 Anterior Bilateral Throughout] Respiratory Rate Respiratory 18 18 Rate [Anterior Bilateral Throughout] Blood Pressure 120/56 O2 Sat by Pulse 96 Oximetry 02/15/16 02/15/16 02/15/16 15:05 16:00 16:01 Temperature Pulse Rate 89 80 Pulse Rate [ Anterior Bilateral Throughout] Respiratory 20 16 18 Rate Respiratory Rate [Anterior Bilateral Throughout] Blood Pressure 120/56 120/56 O2 Sat by Pulse 95 97 96 Oximetry 02/15/16 17:00 Temperature Pulse Rate 86 Pulse Rate [ Anterior Bilateral Throughout] Respiratory 13 Rate Respiratory Rate [Anterior Bilateral Throughout] Blood Pressure 130/70 O2 Sat by Pulse 95 Oximetry Constitutional: no acute distress, alert Eyes: non-icteric ENT: oropharynx moist, other (poor dentition) Ascultation: Bilateral: diminished breath sounds (but clear) Percussion: Bilateral: not dull Tactile fremitus: Bilateral: normal Cardiovascular: regular rate and rhythm (no mrg) Gastrointestinal: normoactive bowel sounds, soft, non-tender Integumentary: normal Extremities: no cyanosis, no edema Neurologic: normal mental status, non-focal exam Psychiatric: mood appropriate, affect normal CBC and BMP: 02/14/16 04:07 02/14/16 04:07 ABG, PT/INR, D-dimer: ABG POC ABG pH 7.457 (7.35-7.45) H 02/12/16 22:01 POC ABG pCO2 44.0 (35-45) 02/12/16 22:01 POC ABG pO2 104 (80-105) 02/12/16 22:01 POC ABG HCO3 31.1 02/12/16 22:01 POC ABG Total CO2 32 02/12/16 22:01 POC ABG O2 Sat 98 02/12/16 22:01 Abnormal lab findings: Abnormal Labs 02/12/16 02/12/16 02/12/16 22:01 22:04 23:39 WBC RBC Hgb Hct MCHC RDW Seg Neuts % (Manual) Lymphocytes % (Manual) Seg Neutrophils # Man Lymphocytes # (Manual) Monocytes # (Manual) POC ABG pH 7.457 H Carbon Dioxide BUN Creatinine Glucose POC Glucose 313 H 296 H Calcium Total Protein Albumin 02/13/16 02/13/16 02/13/16 04:15 04:15 08:05 WBC 14.8 H RBC 3.46 L Hgb 9.7 L Hct 31.5 L MCHC 31 L RDW 16.6 H Seg Neuts % (Manual) 91.0 H Lymphocytes % (Manual) 2.0 L Seg Neutrophils # Man 13.5 H Lymphocytes # (Manual) 0.3 L Monocytes # (Manual) POC ABG pH Carbon Dioxide 32 H BUN 23 H Creatinine Glucose 160 H POC Glucose 154 H Calcium 8.1 L Total Protein 5.3 L Albumin 2.9 L 02/13/16 02/13/16 02/13/16 11:59 16:35 23:45 WBC RBC Hgb Hct MCHC RDW Seg Neuts % (Manual) Lymphocytes % (Manual) Seg Neutrophils # Man Lymphocytes # (Manual) Monocytes # (Manual) POC ABG pH Carbon Dioxide BUN Creatinine Glucose POC Glucose 167 H 181 H 115 H Calcium Total Protein Albumin 02/14/16 02/14/16 02/14/16 04:07 04:07 15:20 WBC 16.6 H RBC 3.27 L Hgb 9.3 L Hct 29.7 L MCHC 31 L RDW 16.6 H Seg Neuts % (Manual) 85.0 H Lymphocytes % (Manual) 5.0 L Seg Neutrophils # Man 14.1 H Lymphocytes # (Manual) 0.8 L Monocytes # (Manual) 1.0 H POC ABG pH Carbon Dioxide BUN Creatinine 0.7 L Glucose 103 H POC Glucose 115 H Calcium 8.1 L Total Protein Albumin 02/14/16 02/15/16 21:35 12:06 WBC RBC Hgb Hct MCHC RDW Seg Neuts % (Manual) Lymphocytes % (Manual) Seg Neutrophils # Man Lymphocytes # (Manual) Monocytes # (Manual) POC ABG pH Carbon Dioxide BUN Creatinine Glucose POC Glucose 125 H 163 H Calcium Total Protein Albumin Chest x-ray: report reviewed, image reviewed
[2016-02-15] MEDS: PEPCID PO SCH (21:52)
[2016-02-15] MEDS: LEVAQUIN 500MG/100ML 100 ML IV SCH (21:53)
[2016-02-15] MEDS: LEVEMIR SUB-Q SCH (23:10)
[2016-02-16] MEDS: DUONEB 0.5 MG-3 MG/3 ML SOLN IH SCH ×4 (02:02→21:10)
[2016-02-16] MEDS: PERCOCET 5/325 PO PRN ×2 (03:50→21:41)
[2016-02-16] MEDS: BROVANA NEBU IH SCH ×2 (08:11→21:10)
[2016-02-16] MEDS: PULMICORT IH SCH ×2 (08:11→20:35)
[2016-02-16] MEDS: FLOMAX PO SCH ×2 (10:12→10:13)
[2016-02-16] MEDS: NORVASC PO SCH ×2 (10:12→10:15)
[2016-02-16] MEDS: PLAVIX PO SCH ×2 (10:12→10:14)
[2016-02-16] MEDS: LOVENOX SUB-Q SCH ×2 (10:13→10:14)
[2016-02-16] MEDS: ZESTRIL PO SCH ×2 (10:13→10:15)
[2016-02-16] MEDS: PEPCID PO SCH ×3 (10:13→22:05)
[2016-02-16] MEDS: PROSCAR PO SCH ×2 (10:13→10:14)
--- NOTE | 2016-02-16 10:41 | Progress Note ---
Assessment and Plan Assessment and plan: 1. COPD exacerbation with chronic respiratory failure- improving and stable; will cont nebulization treatments; transfer to medical floor; cont steroid; levaquin to 500mg daily; cont brovana and pulmicort. 2. CHF - appears compensated; EF unknown; cont current meds; eCHO to eval EF 3. 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 Benign HTN- control; cont current meds and adjust as needed 5. BPH- cont meds 6. Debility- PT eval; await LTACH evaluation 7. DVT prophylaxis- lovenox awaiting bed on the floor and LTACH eval History Interval history: No new issues overnight. Hospitalist Physical - Constitutional Vitals: Temp Pulse Resp BP Pulse Ox 98.9 F 72 16 140/80 96 02/16/16 07:30 02/16/16 10:12 02/16/16 08:27 02/16/16 10:12 02/16/16 08:12 General appearance: Present: no acute distress - EENT Eyes: Present: PERRL, EOM intact ENT: hearing intact, clear oral mucosa, dentition normal - Neck Neck: Present: supple, normal ROM - Respiratory Respiratory effort: normal Respiratory: bilateral: diminished, rhonchi - Cardiovascular Rhythm: regular Heart Sounds: Present: S1 & S2. Absent: gallop, rub - Extremities Extremities: no ischemia, No edema, Full ROM - Abdominal General gastrointestinal: soft, non-tender, non-distended, normal bowel sounds - Integumentary Integumentary: Present: clear, warm, dry - Neurologic Neurologic: CNII-XII intact, moves all extremities Results - Labs CBC & Chem 7: 02/14/16 04:07 02/14/16 04:07 Labs: Laboratory Last Values WBC 16.6 K/mm3 (4.5-11.0) H 02/14/16 04:07 RBC 3.27 M/mm3 (3.65-5.03) L 02/14/16 04:07 Hgb 9.3 gm/dl (11.8-15.2) L 02/14/16 04:07 Hct 29.7 % (35.5-45.6) L 02/14/16 04:07 MCV 91 fl (84-94) 02/14/16 04:07 MCH 28 pg (28-32) 02/14/16 04:07 MCHC 31 % (32-34) L 02/14/16 04:07 RDW 16.6 % (13.2-15.2) H 02/14/16 04:07 Plt Count 317 K/mm3 (140-440) 02/14/16 04:07 [place] % (Auto) Geometry Professor 02/14/16 04:07 Add Manual Diff Complete 02/14/16 04:07 Total Counted 100 02/14/16 04:07 Seg Neutrophils % Geometry Professor 02/13/16 04:15 Seg Neuts % (Manual) 85.0 % (40.0-70.0) H 02/14/16 04:07 Band Neutrophils % 4.0 % 02/14/16 04:07 Lymphocytes % (Manual) 5.0 % (13.4-35.0) L 02/14/16 04:07 Reactive Lymphs % (Man) 0 % 02/14/16 04:07 Monocytes % (Manual) 6.0 % (0.0-7.3) 02/14/16 04:07 Eosinophils % (Manual) 0 % (0.0-4.3) 02/14/16 04:07 Basophils % (Manual) 0 % (0.0-1.8) 02/14/16 04:07 Metamyelocytes % 0 % 02/14/16 04:07 Myelocytes % 0 % 02/14/16 04:07 Promyelocytes % 0 % 02/14/16 04:07 Blast Cells % 0 % 02/14/16 04:07 Nucleated RBC % Not Reportable 02/14/16 04:07 Seg Neutrophils # Man 14.1 K/mm3 (1.8-7.7) H 02/14/16 04:07 Band Neutrophils # 0.7 K/mm3 02/14/16 04:07 Lymphocytes # (Manual) 0.8 K/mm3 (1.2-5.4) L 02/14/16 04:07 Abs React Lymphs (Man) 0.0 K/mm3 02/14/16 04:07 Monocytes # (Manual) 1.0 K/mm3 (0.0-0.8) H 02/14/16 04:07 Eosinophils # (Manual) 0.0 K/mm3 (0.0-0.4) 02/14/16 04:07 Basophils # (Manual) 0.0 K/mm3 (0.0-0.1) 02/14/16 04:07 Metamyelocytes # 0.0 K/mm3 02/14/16 04:07 Myelocytes # 0.0 K/mm3 02/14/16 04:07 Promyelocytes # 0.0 K/mm3 02/14/16 04:07 Blast Cells # 0.0 K/mm3 02/14/16 04:07 WBC Morphology Not Reportable 02/14/16 04:07 Hypersegmented Neuts Not Reportable 02/14/16 04:07 Hyposegmented Neuts Not Reportable 02/14/16 04:07 Hypogranular Neuts Not Reportable 02/14/16 04:07 Smudge Cells Not Reportable 02/14/16 04:07 Toxic Granulation Not Reportable 02/14/16 04:07 Toxic Vacuolation Not Reportable 02/14/16 04:07 Dohle Bodies Not Reportable 02/14/16 04:07 Pelger-Huet Anomaly Not Reportable 02/14/16 04:07 Louise Rods Not Reportable 02/14/16 04:07 Platelet Estimate Consistent w auto 02/14/16 04:07 Clumped Platelets Not Reportable 02/14/16 04:07 Plt Clumps, EDTA Not Reportable 02/14/16 04:07 Large Platelets Not Reportable 02/14/16 04:07 Giant Platelets Not Reportable 02/14/16 04:07 Platelet Satelliting Not Reportable 02/14/16 04:07 Plt Morphology Comment Not Reportable 02/14/16 04:07 RBC Morphology Not Reportable 02/14/16 04:07 Dimorphic RBCs Not Reportable 02/14/16 04:07 Polychromasia Not Reportable 02/14/16 04:07 Hypochromasia Not Reportable 02/14/16 04:07 Poikilocytosis Not Reportable 02/14/16 04:07 Anisocytosis 1+ 02/14/16 04:07 Microcytosis Not Reportable 02/14/16 04:07 Macrocytosis Not Reportable 02/14/16 04:07 Spherocytes Not Reportable 02/14/16 04:07 Pappenheimer Bodies Not Reportable 02/14/16 04:07 Sickle Cells Not Reportable 02/14/16 04:07 Target Cells Not Reportable 02/14/16 04:07 Tear Drop Cells Not Reportable 02/14/16 04:07 Ovalocytes Not Reportable 02/14/16 04:07 Helmet Cells Not Reportable 02/14/16 04:07 [place] Bodies Not Reportable 02/14/16 04:07 [place] Rings Not Reportable 02/14/16 04:07 Rell Cells Not Reportable 02/14/16 04:07 Bite Cells Not Reportable 02/14/16 04:07 Crenated Cell Not Reportable 02/14/16 04:07 Elliptocytes Not Reportable 02/14/16 04:07 Acanthocytes (Spur) Not Reportable 02/14/16 04:07 Rouleaux Not Reportable 02/14/16 04:07 Hemoglobin C Crystals Not Reportable 02/14/16 04:07 Schistocytes Not Reportable 02/14/16 04:07 Malaria parasites Not Reportable 02/14/16 04:07 Jayesh Bodies Not Reportable 02/14/16 04:07 Hem Pathologist Commnt No 02/14/16 04:07 POC ABG pH 7.457 (7.35-7.45) H 02/12/16 22:01 POC ABG pCO2 44.0 (35-45) 02/12/16 22:01 POC ABG pO2 104 (80-105) 02/12/16 22:01 POC ABG HCO3 31.1 02/12/16 22:01 POC ABG Total CO2 32 02/12/16 22:01 POC ABG O2 Sat 98 02/12/16 22:01 POC ABG Base Excess 7 02/12/16 22:01 FiO2 4 % 02/12/16 22:01 Sodium 144 mmol/L (137-145) 02/14/16 04:07 Potassium 4.5 mmol/L (3.6-5.0) 02/14/16 04:07 Chloride 105.2 mmol/L (98-107) 02/14/16 04:07 Carbon Dioxide 30 mmol/L (22-30) 02/14/16 04:07 Anion Gap 13 mmol/L 02/14/16 04:07 BUN 16 mg/dL (9-20) 02/14/16 04:07 Creatinine 0.7 mg/dL (0.8-1.5) L 02/14/16 04:07 Estimated GFR > 60 ml/min 02/14/16 04:07 BUN/Creatinine Ratio 22.85 % 02/14/16 04:07 Glucose 103 mg/dL (75-100) H 02/14/16 04:07 POC Glucose 82 (70-105) 02/16/16 06:38 Hemoglobin A1c 6.9 % (4-6) H 02/12/16 15:33 Calcium 8.1 mg/dL (8.4-10.2) L 02/14/16 04:07 Total Bilirubin 0.5 mg/dL (0.1-1.2) 02/13/16 04:15 AST 8 units/L (5-40) 02/13/16 04:15 ALT 10 units/L (7-56) 02/13/16 04:15 Alkaline Phosphatase 50 units/L (35-129) 02/13/16 04:15 Troponin T 0.014 ng/mL (0.00-0.029) 02/12/16 15:32 Total Protein 5.3 g/dL (6.3-8.2) L 02/13/16 04:15 Albumin 2.9 g/dL (3.9-5) L 02/13/16 04:15 Albumin/Globulin Ratio 1.2 % 02/13/16 04:15
[2016-02-16] MEDS: THEO-24 PO SCH (11:47)
--- NOTE | 2016-02-16 16:52 | Echocardiography Report ---
Transthoracic Echocardiogram Indication: CHF BP: 150/72 Conclusions *Mild concentric left ventricular hypertrophy is observed. *The estimated ejection fraction is 50-55%. *Abnormal left ventricular diastolic filling is observed, consistent with impaired relaxation. *Mild aortic leaflet calcification is visualized. *The mitral valve leaflets are mildly thickened. Findings Procedure Info: The study quality is technically difficult. The study was technically limited due to the patient's inability to lay in the left lateral decubitus position. Left Ventricle: Mild concentric left ventricular hypertrophy is observed. Global left ventricular wall motion and contractility are within normal limits. Global left ventricular systolic function is normal. The estimated ejection fraction is 50-55%. Abnormal left ventricular diastolic filling is observed, consistent with impaired relaxation. Left Atrium: The left atrium is normal in size with no visual thrombus identified. Right Ventricle: The right ventricular chamber size and systolic function are within normal limits. Right Atrium: The right atrium is not well visualized. Aortic Valve: The aortic valve leaflets are mildly thickened. Mild aortic leaflet calcification is visualized. Mitral Valve: The mitral valve leaflets are mildly thickened. Mild mitral leaflet calcification is visualized. Tricuspid Valve: The tricuspid valve is not well visualized. Pulmonic Valve: The pulmonic valve is not well visualized. Measurements Chambers MM Name Value Normal Range Ao root diameter (MM) 3.6 cm (2 - 3.7) Chambers 2D Name Value Normal Range IVSd (2D) 1.33 cm (0.6 - 1.1) LVPWd (2D) 1.37 cm (0.6 - 1.1) IVS:LVPW ratio (2D) 0.97 ratio - LVIDd (2D) 5.54 cm (3.7 - 5.6) LVIDs (2D) 3.86 cm (2 - 3.8) LV FS (Teichholz) (2D) 30.3 % - LV FS (cube) (2D) 30.3 % - EF Teichholz (2D) 57.1 % - LA dimension (AP) 2D 3.9 cm (1.9 - 4) Volumes/Mass Name Value Normal Range LA ESV SP 4CH (MOD) 30 ml - LA ESV SP 2CH (MOD) 36 ml - LA ESV BP (MOD) 34 ml - LA ESV BP (MOD) index 17 ml/m2 - Diastolic/Systolic Function Name Value Normal Range MV E-wave Vmax 0.66 m/sec - MV deceleration time 158 msec - MV A-wave Vmax 0.89 m/sec - MV E:A ratio 0.7 ratio - LV septal e' Vmax 0.06 m/sec - LV lateral e' Vmax 0.1 m/sec - LV E:e' septal ratio 10.3 ratio - LV E:e' lateral ratio 6.4 ratio - Aortic Valve Name Value Normal Range AV VTI 22.4 cm - AV mean gradient 3 mmHg - LVOT diameter 2 cm - LVOT VTI 21 cm - LVOT mean gradient 3 mmHg - SV LVOT 66 ml - GAYLE (continuity VTI) 2.94 cm2 - Mitral Valve Name Value Normal Range MV PHT 46 msec - MVA (PHT) 4.78 cm2 -
[2016-02-16] MEDS ORDERED: THEO-24 PO SCH (18:14)
--- NOTE | 2016-02-16 18:16 | Progress Note ---
Assessment and Plan Imp: 1. Centrilobular emphysema, end-stage 2. COPD exac. 3. A/C respiratory failure, hypoxia Rec: 1. Solumedrol -> Prednisone taper at d/c 2. Pulmicort/Brovana 3. Duonebs 4. Added low-dose Theophylline XR -> tolerating well so increased to 300mg daily ; continue at d/c 5. Ambulation/placement -> PT/OT 6. Can go to [facility] pulm-[facility]; Echo report was reviewed Plan of care reviewed w/ patient, he understands/agrees Subjective Date of service: 02/16/16 Principal diagnosis: COPD Interval history: No events. On home O2 dose. SOB better. No wheezing. C/o SU. No new complaints. Active Medications Acetaminophen (Tylenol) 650 mg PO Q4H PRN PRN Reason: Pain MILD(1-3)/Fever >100.5/RAMOS Albuterol (Proventil) 2.5 mg IH Q3HRT PRN PRN Reason: Wheezing/ SOB Albuterol/Ipratropium (Duoneb 0.5 Mg-3 Mg/3 Ml Soln) 1 ampul IH Q6HRT [facility] Last Admin: 02/16/16 13:25 Dose: 1 ampul Alprazolam (Xanax) 0.5 mg PO BID PRN PRN Reason: Anxiety Last Admin: 02/14/16 00:18 Dose: 0.5 mg Amlodipine Besylate (Norvasc) 10 mg PO DAILY [facility] Last Admin: 02/16/16 10:15 Dose: 10 mg Arformoterol Tartrate (Brovana Nebu) 15 mcg IH Q12HRT [facility] Last Admin: 02/16/16 08:11 Dose: 15 mcg Bisacodyl (Dulcolax) 10 mg [place] QDAY PRN PRN Reason: Constipation unrelieved by MOM Budesonide (Pulmicort) 0.5 mg IH Q12HRT [facility] Last Admin: 02/16/16 08:11 Dose: 0.5 mg Clopidogrel Bisulfate (Plavix) 75 mg PO DAILY [facility] Last Admin: 02/16/16 10:14 Dose: 75 mg Enoxaparin Sodium (Lovenox) 40 mg SUB-Q QDAY [facility] Last Admin: 02/16/16 10:14 Dose: 40 mg Famotidine (Pepcid) 20 mg PO BID [facility] Last Admin: 02/16/16 10:14 Dose: 20 mg Finasteride (Proscar) 5 mg PO QDAY [facility] Last Admin: 02/16/16 10:14 Dose: 5 mg Hydromorphone HCl (Dilaudid) 0.5 mg IV Q3H PRN PRN Reason: Pain , Severe (7-10) Levofloxacin/Dextrose (Levaquin 500mg/100ml) 100 mls @ 100 mls/hr IV Q24H [facility] PRN Reason: Protocol Last Admin: 02/15/16 21:53 Dose: 100 mls/hr Insulin Detemir (Levemir) 20 units SUB-Q QHS [facility] Last Admin: 02/15/16 23:10 Dose: Not Given Insulin Human Regular (Novolin R) 0 units SUB-Q ACHS [facility] PRN Reason: Protocol Last Admin: 02/16/16 17:56 Dose: 2 units Lisinopril (Zestril) 5 mg PO QDAY [facility] Last Admin: 02/16/16 10:15 Dose: 5 mg Methylprednisolone Sodium Succinate (Solu-Medrol) 40 mg IV Q24H [facility] Last Admin: 02/16/16 10:48 Dose: 40 mg Ondansetron HCl (Zofran) 4 mg IV Q8H PRN PRN Reason: N/V unrelieved by Reglan Oxycodone/Acetaminophen (Percocet 5/325) 1 tab PO Q6H PRN PRN Reason: Pain, Moderate (4-6) Last Admin: 02/16/16 03:50 Dose: 1 tab Tamsulosin HCl (Flomax) 0.4 mg PO QDAY [facility] Last Admin: 02/16/16 10:13 Dose: 0.4 mg Theophylline (Petros-24) 300 mg PO QDAY [facility] Objective Vital Signs - 12hr 02/16/16 02/16/16 02/16/16 07:30 08:12 08:27 Temperature 98.9 F Pulse Rate Pulse Rate [ 94 H 96 H Bilateral] Pulse Rate [ Left Dorsalis Pedis] Pulse Rate [ 82 Left Radial] Respiratory 24 Rate Respiratory 16 16 Rate [Bilateral ] Blood Pressure Blood Pressure 140/70 [Left Arm] O2 Sat by Pulse 96 96 Oximetry 02/16/16 02/16/16 02/16/16 10:00 10:12 13:26 Temperature Pulse Rate 72 Pulse Rate [ 92 H Bilateral] Pulse Rate [ Left Dorsalis Pedis] Pulse Rate [ Left Radial] Respiratory Rate Respiratory 14 Rate [Bilateral ] Blood Pressure 140/80 Blood Pressure [Left Arm] O2 Sat by Pulse 97 Oximetry 02/16/16 02/16/16 13:55 16:30 Temperature 97 F L Pulse Rate Pulse Rate [ 90 Bilateral] Pulse Rate [ 94 H Left Dorsalis Pedis] Pulse Rate [ Left Radial] Respiratory 24 Rate Respiratory 16 Rate [Bilateral ] Blood Pressure Blood Pressure 123/56 [Left Arm] O2 Sat by Pulse Oximetry Constitutional: no acute distress, alert Eyes: non-icteric ENT: oropharynx moist, other (poor dentition) Ascultation: Bilateral: diminished breath sounds (but clear) Percussion: Bilateral: not dull Tactile fremitus: Bilateral: normal Cardiovascular: regular rate and rhythm (no mrg) Gastrointestinal: normoactive bowel sounds, soft, non-tender Integumentary: normal Extremities: no cyanosis, no edema Neurologic: normal mental status, non-focal exam Psychiatric: mood appropriate, affect normal CBC and BMP: 02/14/16 04:07 02/14/16 04:07 ABG, PT/INR, D-dimer: ABG POC ABG pH 7.457 (7.35-7.45) H 02/12/16 22:01 POC ABG pCO2 44.0 (35-45) 02/12/16 22:01 POC ABG pO2 104 (80-105) 02/12/16 22:01 POC ABG HCO3 31.1 02/12/16 22:01 POC ABG Total CO2 32 02/12/16 22:01 POC ABG O2 Sat 98 02/12/16 22:01 Abnormal lab findings: Abnormal Labs 02/12/16 02/12/16 02/12/16 22:01 22:04 23:39 WBC RBC Hgb Hct MCHC RDW Seg Neuts % (Manual) Lymphocytes % (Manual) Seg Neutrophils # Man Lymphocytes # (Manual) Monocytes # (Manual) POC ABG pH 7.457 H Carbon Dioxide BUN Creatinine Glucose POC Glucose 313 H 296 H Calcium Total Protein Albumin 02/13/16 02/13/16 02/13/16 04:15 04:15 08:05 WBC 14.8 H RBC 3.46 L Hgb 9.7 L Hct 31.5 L MCHC 31 L RDW 16.6 H Seg Neuts % (Manual) 91.0 H Lymphocytes % (Manual) 2.0 L Seg Neutrophils # Man 13.5 H Lymphocytes # (Manual) 0.3 L Monocytes # (Manual) POC ABG pH Carbon Dioxide 32 H BUN 23 H Creatinine Glucose 160 H POC Glucose 154 H Calcium 8.1 L Total Protein 5.3 L Albumin 2.9 L 02/13/16 02/13/16 02/13/16 11:59 16:35 23:45 WBC RBC Hgb Hct MCHC RDW Seg Neuts % (Manual) Lymphocytes % (Manual) Seg Neutrophils # Man Lymphocytes # (Manual) Monocytes # (Manual) POC ABG pH Carbon Dioxide BUN Creatinine Glucose POC Glucose 167 H 181 H 115 H Calcium Total Protein Albumin 02/14/16 02/14/16 02/14/16 04:07 04:07 15:20 WBC 16.6 H RBC 3.27 L Hgb 9.3 L Hct 29.7 L MCHC 31 L RDW 16.6 H Seg Neuts % (Manual) 85.0 H Lymphocytes % (Manual) 5.0 L Seg Neutrophils # Man 14.1 H Lymphocytes # (Manual) 0.8 L Monocytes # (Manual) 1.0 H POC ABG pH Carbon Dioxide BUN Creatinine 0.7 L Glucose 103 H POC Glucose 115 H Calcium 8.1 L Total Protein Albumin 02/14/16 02/15/16 02/15/16 21:35 12:06 16:21 WBC RBC Hgb Hct MCHC RDW Seg Neuts % (Manual) Lymphocytes % (Manual) Seg Neutrophils # Man Lymphocytes # (Manual) Monocytes # (Manual) POC ABG pH Carbon Dioxide BUN Creatinine Glucose POC Glucose 125 H 163 H 203 H Calcium Total Protein Albumin 02/15/16 02/16/16 02/16/16 21:53 12:44 16:54 WBC RBC Hgb Hct MCHC RDW Seg Neuts % (Manual) Lymphocytes % (Manual) Seg Neutrophils # Man Lymphocytes # (Manual) Monocytes # (Manual) POC ABG pH Carbon Dioxide BUN Creatinine Glucose POC Glucose 151 H 128 H 209 H Calcium Total Protein Albumin Chest x-ray: report reviewed, image reviewed
[2016-02-16] MEDS: LEVEMIR SUB-Q SCH (21:44)
[2016-02-16] MEDS: LEVAQUIN 500MG/100ML 100 ML IV SCH (22:05)
[2016-02-17] MEDS: DUONEB 0.5 MG-3 MG/3 ML SOLN IH SCH ×2 (02:54→18:38)
[2016-02-17] MEDS: XANAX PO PRN (03:57)
[2016-02-17] MEDS: PULMICORT IH SCH (08:11)
[2016-02-17] MEDS: BROVANA NEBU IH SCH (08:12)
--- NOTE | 2016-02-17 09:01 | Discharge Summary ---
Providers - Providers Date of Admission: 02/12/16 21:14 Date of discharge: 02/17/16 Attending physician: KARLA MARTIN 02/12/16 22:52 Consult to Physician [CONS] Routine Consulting Provider: PEARL BALDWIN Reason For Exam: sob Place consult to:: [place] [facility] Notified:: none 02/13/16 12:41 Physical Therapy Evaluation and Treat [CONS] Routine Comment: Reason For Exam: debility 02/15/16 13:19 Physical Therapy Evaluation and Treat [CONS] Urgent Comment: Reason For Exam: physical therapy Mode of Transport?: Walker Referring MD: NESTOR MILLER 02/15/16 13:22 Occupational Therapy Evaluate and Treat [CONS] Urgent Comment: Reason For Exam: occupational therapy 02/15/16 14:54 Consult Acute Rehabilitation [CONS] Routine Consulting Provider: KEON HARTMAN Reason For Exam: Pulmonary Rehab 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 Patient was found to have acute on chronic hypoxic respiratory failure. Pt. also had vasomotor nephropathy on admission which resolved. Patient was found to have COPD exacerbation which was treated with breathing treatments and Solu-Medrol. Patient received Pulmicort and Brovana and duoonebs. Patient also had low-dose theophylline added 300 mg daily. Patient underwent echocardiogram to assess cardiac function and possibility of component of CHF exacerbation. Echocardiogram revealed normal EF with some mild impaired relaxation. CHF is compensated during hospitalization. Patient also complained of general debility and initially wanted rehabilitation placement. Patient then later rescinded this request and would like to be discharged home with home health. Dedicated discharge time 35 minutes. Disposition: DISCHARGED TO HOME OR SELFCARE Time spent for discharge: 35 Core Measure Documentation - Palliative Care Palliative Care/ Comfort Measures: Not Applicable - Core Measures Any of the following diagnoses?: none Exam - Constitutional Vitals: Temp Pulse Resp BP Pulse Ox 97 F L 78 20 123/56 97 02/16/16 16:30 02/16/16 20:47 02/17/16 04:00 02/16/16 16:30 02/17/16 01:15 General appearance: Present: no acute distress, well-nourished - EENT Eyes: Present: PERRL ENT: hearing intact, clear oral mucosa - Neck Neck: Present: supple, normal ROM - Respiratory Respiratory effort: normal Respiratory: bilateral: CTA - Cardiovascular Heart Sounds: Present: S1 & S2. Absent: rub, click - Extremities Extremities: pulses symmetrical, No edema Peripheral Pulses: within normal limits - Abdominal General gastrointestinal: Present: soft, non-tender, non-distended, normal bowel sounds Male genitourinary: Present: normal - Integumentary Integumentary: Present: clear, warm, dry - Musculoskeletal Musculoskeletal: gait normal, strength equal bilaterally - Psychiatric Psychiatric: appropriate mood/affect, intact judgment & insight - Neurologic Neurologic: CNII-XII intact, moves all extremities Plan Activity: advance as tolerated Weight Bearing Status: Weight Bear as Tolerated Diet: low fat, low cholesterol, low salt Special Instructions: home health RN Follow up with: PRIMARY CARE,MD [Primary Care Provider] - 3-5 Days Prescriptions: ALBUTEROL Inhaler [ProAir HFA Inhaler] 2 puff IH QID PRN #30 inha PRN Reason: Shortness Of Breath Arformoterol Nebu [Brovana Nebu] 15 mcg IH Q12HRT #30 ml Budesonide [Pulmicort Respules] 0.5 mg IH Q12HRT #30 nebu Clopidogrel Bisulfate [Plavix] 75 mg PO DAILY #30 tablet Finasteride [Proscar] 5 mg PO QDAY #30 tablet Insulin Detemir [Levemir Flextouch] 20 unit SQ QHS #30 insuln.pen Ipratropium [Atrovent NEB] 0.5 mg IH Q8HRT #30 nebu Lisinopril [Zestril TAB] 5 mg PO QDAY #30 tablet Tamsulosin [Flomax] 0.4 mg PO QDAY #30 capsule Theophylline Anhydrous ER [Petros-24] 300 mg PO QDAY #30 capsule amLODIPine [Norvasc] 10 mg PO DAILY #30 tablet predniSONE [Deltasone] 20 mg PO QDAY 15 Days
[2016-02-17] MEDS ORDERED: THEO-24 PO SCH (10:00)
[2016-02-17] MEDS: PLAVIX PO SCH (10:10)
[2016-02-17] MEDS: LOVENOX SUB-Q SCH (10:10)
[2016-02-17] MEDS: PEPCID PO SCH (10:10)
[2016-02-17] MEDS: FLOMAX PO SCH (10:10)
[2016-02-17] MEDS: ZESTRIL PO SCH (10:12)
[2016-02-17] MEDS: PROSCAR PO SCH (10:12)
[2016-02-17] MEDS: NORVASC PO SCH (10:13)
[2016-02-17 10:22] VITALS: BP 124/68
== END 2016-02-17 12:47 | disposition home or self-care (01) | DRG 682 ==
LOC: ED 14:02 → CC1 21:14 → 3A 02-15 18:24
PROVIDERS: ADMIT Internal Medicine; ATTEND Hospitalist
PROC: 4A033R1 Measurement of Arterial Saturation, Peripheral, Percutaneous Approach (ICD-10-PCS; principal; 2016-02-12)
DX: N17.0 Acute kidney failure with tubular necrosis (principal); J96.21 Acute and chronic respiratory failure with hypoxia; E11.65 Type 2 diabetes mellitus with hyperglycemia; I11.0 Hypertensive heart disease with heart failure; I50.9 Heart failure, unspecified; E86.0 Dehydration; N40.0 Benign prostatic hyperplasia without lower urinary tract symptoms; F41.9 Anxiety disorder, unspecified; I25.10 Atherosclerotic heart disease of native coronary artery without angina pectoris; R53.81 Other malaise; J43.2 Centrilobular emphysema; R26.81 Unsteadiness on feet; Z79.4 Long term (current) use of insulin; Z90.89 Acquired absence of other organs; Z90.49 Acquired absence of other specified parts of digestive tract; Z87.891 Personal history of nicotine dependence; Z79.52 Long term (current) use of systemic steroids
CPT/HCPCS: 36415; 71010; 80048; 80053; 82803; 82962; 83036; 84484; 85007; 85025; 87040; 93005; 93010; 93306; 94640; 94760; 96372; 96374; 96375; G8978-GP; G8979-GP; G8987-GO; G8988-GO; J1650; J1815; J1818; J1956; J2543; J2920; J2930; J3370; J7030